=== PATIENT | female | born 1955 | race Two or more races ===

== ENCOUNTER 2018-04-18 11:41 | Emergency (ER) | payer MEDICARE, MEDICAID ==
[~2018-04-18] VITALS: Ht 170.2 cm; Wt 65.9 kg
[~2018-04-18 11:41] MED LIST: AMIT-189 PO; AMYL1CAP54 PO; CLON-529 PO; DIVA-74 PO; DOCU-274 PO; FOLI-43 PO; LISI10TA4 PO; LORA0.5T PO; OMEP-84 PO; SERT-128 PO; TRAM50TA2 PO
[2018-04-18 11:46] VITALS: BP 147/70
[2018-04-18] MEDS ORDERED: HYDROcodone/acetaminophen 10/325mg tab PO ONE (12:35)
[2018-04-18] MEDS ORDERED: HYDR-4353 PO (14:24)
== END 2018-04-18 15:03 | disposition home or self-care (01) ==
LOC: ER 11:43
DX: S32.018A Other fracture of first lumbar vertebra, initial encounter for closed fracture (principal); S32.028A Other fracture of second lumbar vertebra, initial encounter for closed fracture; S32.038A Other fracture of third lumbar vertebra, initial encounter for closed fracture; S32.048A Other fracture of fourth lumbar vertebra, initial encounter for closed fracture; I10 Essential (primary) hypertension; K21.9 Gastro-esophageal reflux disease without esophagitis; Z90.89 Acquired absence of other organs; Z98.890 Other specified postprocedural states; Z79.899 Other long term (current) drug therapy; Z60.2 Problems related to living alone; V09.9XXA Pedestrian injured in unspecified transport accident, initial encounter; Y93.89 Activity, other specified; Y92.89 Other specified places as the place of occurrence of the external cause; Y99.8 Other external cause status
CPT/HCPCS: 74176; 99284

== ENCOUNTER 2018-04-30 04:01 | Inpatient (IN) | payer MEDICARE, MEDICAID | END 2018-05-05 13:50 | disposition home or self-care (01) | LOC: SUR 3N 05-02 01:09 → ER 04:01 → ED HOLD 06:02 → SUR 3N 14:37 | DX: N39.0 Urinary tract infection, site not specified (principal); L03.115 Cellulitis of right lower limb; R55 Syncope and collapse; E87.6 Hypokalemia; K21.9 Gastro-esophageal reflux disease without esophagitis; F41.9 Anxiety disorder, unspecified; F31.9 Bipolar disorder, unspecified; I95.9 Hypotension, unspecified; D50.9 Iron deficiency anemia, unspecified ==

== ENCOUNTER 2018-05-28 14:07 | Observation (INO) | payer MEDICARE, MEDICAID ==
[~2018-05-28] VITALS: Ht 170.2 cm; Wt 68.0 kg
[~2018-05-28 14:07] MED LIST changes: -AMIT-189 PO; -AMYL1CAP54 PO; +ARIP5TAB4 PO; +BACL10TA PO; -DOCU-274 PO; -FOLI-43 PO; -LISI10TA4 PO; -LORA0.5T PO; -OMEP-84 PO; +PANT-47 PO; +SULF1TAB49 PO
[2018-05-28] MEDS ORDERED: aspirin 81mg tab.chew PO ONE (14:30)
[2018-05-28 14:56] LABS: BASOPHILS % (AUTO) 0.7 % (0-1); EOSINOPHILS # (AUTO) 0.3 X10'3 (0-0.9); EOSINOPHILS % (AUTO) 4.8 % (0-6); HEMOGLOBIN 8.8 g/dl (12.0-16.0); LYMPHOCYTES # (AUTO) 2.5 X10'3 (1.1-4.8); LYMPHOCYTES % (AUTO) 46.2 % (21-51); MEAN CORPUSCULAR HGB CONC 32.5 g/dL (33.0-36.5); MEAN PLATELET VOLUME 8.2 FL (7.4-10.4); MONOCYTES # (AUTO) 0.4 X10'3 (0-0.9); MONOCYTES % (AUTO) 6.9 % (2-12); NEUTROPHILS # (AUTO) 2.2 X10'3 (1.8-7.7); NEUTROPHILS % (AUTO) 41.4 % (42-75); PLATELET COUNT 158 X10'3 (140-440); RED BLOOD COUNT 3.51 X10'6 (4.20-5.60); RED CELL DISTRIBUTION WIDTH 26.3 % (11.5-14.5); WHITE BLOOD COUNT 5.4 X10'3 (4.5-11.0)
[2018-05-28 15:07] LABS: ALANINE AMINOTRANSFERASE 18 U/L (12-78); ALBUMIN 2.9 G/DL (3.4-5.0); ALBUMIN/GLOBULIN RATIO 0.8 (1.1-1.5); ALKALINE PHOSPHATASE 54 IU/L (46-116); ANION GAP 12 (8-16); ASPARTATE AMINO TRANSFERASE 21 U/L (10-37); BILIRUBIN,TOTAL 0.1 MG/DL (0.1-1.0); BLOOD UREA NITROGEN 20 MG/DL (7-18); BUN/CREATININE RATIO 20.2 (6.6-38.0); CALCIUM 8.6 MG/DL (8.5-10.1); CHLORIDE 103 MMOL/L (99-107); CREATININE 0.99 MG/DL (0.40-0.90); D-DIMER 0.59 MG/L FEU (0-0.50); GLUCOSE 93 MG/DL (70-104); PARTIAL THROMBOPLASTIN TIME 27 SECONDS (22-32); POTASSIUM 3.6 MMOL/L (3.5-5.1); SODIUM 139 MMOL/L (135-145); TOTAL CARBON DIOXIDE 24.4 MMOL/L (24-32); TOTAL PROTEIN 6.6 G/DL (6.4-8.2); eGFR 56 ML/MIN
[2018-05-28 15:15] LABS: ANISOCYTOSIS 3+; HYPOCHROMASIA 1+; MICROCYTOSIS 1+; PLATELET ESTIMATE NORMAL; POLYCHROMASIA 1+
[2018-05-28 15:16] LABS: ETHANOL 0.298 GM/DL (0.0-0.010); MAGNESIUM 1.5 MG/DL (1.5-2.4)
[2018-05-28] MEDS ORDERED: normal saline 1000ML IV soln IVB ONE ×3 (15:25→18:10)
[2018-05-28] MEDS ORDERED: iohexol 350MG/ML 100ml bottle IV ONE (16:34)
[2018-05-28] MEDS ORDERED: ondansetron/PF 4mg/2ml inj IV PRN (20:40)
[2018-05-28] MEDS ORDERED: acetaminophen 325mg tablet PO PRN ×2 (20:40)
[2018-05-28] MEDS ORDERED: mag hydrox/Alum hydrox/simeth 30ml oral suspension PO PRN (20:40)
[2018-05-28] MEDS ORDERED: magnesium hydroxide 30ml (MOM) UD suspension PO PRN (20:40)
[2018-05-28] MEDS ORDERED: traMADol 50MG tablet PO PRN (20:45)
[2018-05-28] MEDS: normal saline 1000ml 1,000 ML IV SCH (21:02)
[2018-05-28 23:10] LABS: CLARITY,URINE CLEAR (Clear); COLOR,URINE YELLOW (Yellow); GLUCOSE, URINE NEGATIVE (Neg); KETONES,URINE NEGATIVE (Neg); LEUKOCYTE ESTERASE ,URINE TRACE (Neg); NITRITES, URINE NEGATIVE (Neg); OCCULT BLOOD,URINE TRACE-INTACT (Neg); PROTEIN,URINE NEGATIVE (Neg); UROBILINOGEN,URINE 0.2 E.U/dL (0.2-1.0)
[2018-05-28 23:11] LABS: UA COLLECTION TYPE CLN CATCH MIDSTREAM
[2018-05-28 23:36] VITALS: BP 105/63
[2018-05-29 00:11] LABS: BACTERIA,URINE 2+ /HPF (Neg); MUCUS STRANDS NONE SEEN /LPF (Neg); RBC,URINE 0-2 /HPF (0-2); SQUAMOUS EPITHELIAL CELL,UR FEW /LPF (FEW); WBC,URINE 0-4 /HPF (0-4)
[2018-05-29] MEDS: normal saline 1000ml 1,000 ML IV SCH (01:32)
[2018-05-29 05:00] VITALS: BP 136/78
[2018-05-29 06:34] LABS: BASOPHILS # (AUTO) 0.1 X10'3 (0-0.2); EOSINOPHILS # (AUTO) 0.4 X10'3 (0-0.9); HEMATOCRIT 26.1 % (35.0-45.0); HEMOGLOBIN 8.5 g/dl (12.0-16.0); LYMPHOCYTES # (AUTO) 1.5 X10'3 (1.1-4.8); LYMPHOCYTES % (AUTO) 30.6 % (21-51); MEAN CORPUSCULAR HEMOGLOBIN 25.2 PG (27.0-31.0); MEAN CORPUSCULAR HGB CONC 32.7 g/dL (33.0-36.5); MEAN CORPUSCULAR VOLUME 77.2 FL (78-98); MEAN PLATELET VOLUME 8.5 FL (7.4-10.4); MONOCYTES # (AUTO) 0.5 X10'3 (0-0.9); MONOCYTES % (AUTO) 9.9 % (2-12); NEUTROPHILS # (AUTO) 2.5 X10'3 (1.8-7.7); NEUTROPHILS % (AUTO) 50.5 % (42-75); PLATELET COUNT 149 X10'3 (140-440); RED BLOOD COUNT 3.38 X10'6 (4.20-5.60); RED CELL DISTRIBUTION WIDTH 26.5 % (11.5-14.5)
[2018-05-29 06:55] LABS: ALBUMIN 2.4 G/DL (3.4-5.0); ANION GAP 10 (8-16); BLOOD UREA NITROGEN 19 MG/DL (7-18); BUN/CREATININE RATIO 26.4 (6.6-38.0); CHLORIDE 111 MMOL/L (99-107); CREATININE 0.72 MG/DL (0.40-0.90); GLUCOSE 100 MG/DL (70-104); POTASSIUM 3.5 MMOL/L (3.5-5.1); SODIUM 143 MMOL/L (135-145); eGFR 82 ML/MIN
[2018-05-29] MEDS ORDERED: aripiprazole 5mg tablet PO SCH (08:00)
[2018-05-29] MEDS ORDERED: sertraline 50mg tablet PO SCH (08:00)
[2018-05-29] MEDS ORDERED: divalproex sodium 250mg tablet PO SCH (08:00)
[2018-05-29] MEDS ORDERED: pantoprazole 40mg Tablet.DR PO SCH (08:00)
[2018-05-29] MEDS ORDERED: SUCR1TAB34 PO (10:47)
== END 2018-05-29 16:55 | disposition home or self-care (01) ==
LOC: ER 14:08 → ORTHO 4S 22:25 → CMPBEDREQ 05-29 01:39
PROVIDERS: ADMIT Hospitalist; ATTEND Family Medicine
DX: R07.89 Other chest pain (principal); E86.0 Dehydration; I95.9 Hypotension, unspecified; I10 Essential (primary) hypertension; K21.9 Gastro-esophageal reflux disease without esophagitis; G89.29 Other chronic pain; D64.9 Anemia, unspecified; F31.9 Bipolar disorder, unspecified; F41.9 Anxiety disorder, unspecified; F10.20 Alcohol dependence, uncomplicated
CPT/HCPCS: 36415; 71045; 71275; 80048; 80053; 80320; 81001; 83735; 83880; 84484; 85025; 85379; 85610; 85730; 87070; 87088; 93005; 96360; 96361; 97162; 97530; 99284; G0378; J7030; Q9967

== ENCOUNTER 2018-07-15 15:51 | Emergency (ER) | payer MEDICARE, MEDICAID ==
[~2018-07-15] VITALS: Ht 170.2 cm; Wt 75.0 kg
[~2018-07-15 15:51] MED LIST changes: +SUCR1TAB34 PO; -SULF1TAB49 PO
[2018-07-15 15:54] VITALS: BP 115/77
[2018-07-15] MEDS ORDERED: ketorolac tromethamine 15mg/ml inj. IM ONE (16:55)
== END 2018-07-15 17:49 | disposition home or self-care (01) ==
LOC: ER 15:51
DX: M79.672 Pain in left foot (principal); I10 Essential (primary) hypertension; K21.9 Gastro-esophageal reflux disease without esophagitis; G89.29 Other chronic pain; Z98.890 Other specified postprocedural states; Z79.899 Other long term (current) drug therapy
CPT/HCPCS: 73630; 96372; 99284; J1885

== ENCOUNTER 2018-09-23 15:40 | Emergency (ER) | payer MEDICARE, MEDICAID ==
[~2018-09-23] VITALS: Ht 170.2 cm; Wt 65.9 kg
[2018-09-23 15:51] VITALS: BP 109/85
== END 2018-09-23 18:46 | disposition home or self-care (01) ==
LOC: ER 15:41
DX: M54.5 Low back pain (principal); M25.532 Pain in left wrist; M25.511 Pain in right shoulder; M25.512 Pain in left shoulder; R51 Headache; I10 Essential (primary) hypertension; K21.9 Gastro-esophageal reflux disease without esophagitis; G89.29 Other chronic pain; F41.9 Anxiety disorder, unspecified; F31.9 Bipolar disorder, unspecified; Z98.890 Other specified postprocedural states; Z79.899 Other long term (current) drug therapy; W10.8XXA Fall (on) (from) other stairs and steps, initial encounter; Y93.89 Activity, other specified; Y92.89 Other specified places as the place of occurrence of the external cause; Y99.8 Other external cause status
CPT/HCPCS: 70450; 72125; 73100; 99284

== ENCOUNTER 2018-12-20 01:16 | Emergency (ER) | payer MEDICARE, MEDICAID ==
[~2018-12-20] VITALS: Ht 170.2 cm; Wt 66.0 kg
[2018-12-20] MEDS ORDERED: ketorolac trometh inj. 60 MG/2 ML VIAL IM ONE (01:45)
[2018-12-20 02:48] VITALS: BP 125/78
== END 2018-12-20 02:49 | disposition home or self-care (01) ==
LOC: ER 01:17
DX: M25.562 Pain in left knee (principal); G89.29 Other chronic pain; I10 Essential (primary) hypertension; K21.9 Gastro-esophageal reflux disease without esophagitis; F41.9 Anxiety disorder, unspecified; F31.9 Bipolar disorder, unspecified; F10.99 Alcohol use, unspecified with unspecified alcohol-induced disorder; Z60.2 Problems related to living alone; Z79.899 Other long term (current) drug therapy; Z86.2 Personal history of diseases of the blood and blood-forming organs and certain disorders involving the immune mechanism; Z90.89 Acquired absence of other organs; Z98.890 Other specified postprocedural states; Y90.9 Presence of alcohol in blood, level not specified
CPT/HCPCS: 73564; 96372; 99284; J1885

== ENCOUNTER 2019-03-15 16:44 | Emergency (ER) | payer MEDICARE, MEDICAID ==
[~2019-03-15] VITALS: Ht 165.1 cm; Wt 64.5 kg
[~2019-03-15 16:44] MED LIST changes: +ARIP5TAB14 PO; -ARIP5TAB4 PO
[2019-03-15] MEDS ORDERED: traMADol 50MG tablet PO ONE (18:00)
[2019-03-15] MEDS ORDERED: TETanus/Pertussis (Acell)/Diphther VAC/PF (Tdap-Adult) 0.5ml syringe IMVAC ONE (18:00)
--- NOTE | 2019-03-15 18:20 | NUR ---
Pt. to CT
[2019-03-15 19:09] VITALS: BP 118/74
--- NOTE | 2019-03-15 19:12 | NUR ---
CONNIE CALLED , CASE # [id number]
== END 2019-03-15 23:02 | disposition home or self-care (01) ==
LOC: ER 16:45
DX: S13.4XXA Sprain of ligaments of cervical spine, initial encounter (principal); S20.312A Abrasion of left front wall of thorax, initial encounter; S50.812A Abrasion of left forearm, initial encounter; S09.90XA Unspecified injury of head, initial encounter; I10 Essential (primary) hypertension; K21.9 Gastro-esophageal reflux disease without esophagitis; G89.29 Other chronic pain; Z98.890 Other specified postprocedural states; Z90.89 Acquired absence of other organs; Z79.899 Other long term (current) drug therapy; Y04.0XXA Assault by unarmed brawl or fight, initial encounter; Y93.89 Activity, other specified; Y92.89 Other specified places as the place of occurrence of the external cause; Y99.9 Unspecified external cause status
CPT/HCPCS: 70450; 72125; 72128; 90471; 90715; 99284

== ENCOUNTER 2019-03-23 13:49 | Emergency (ER) | payer OTHER, MEDICAID ==
[~2019-03-23] VITALS: Ht 170.2 cm; Wt 62.7 kg
[2019-03-23 13:58] VITALS: BP 160/102
[2019-03-23] MEDS ORDERED: TRAM50TA2 PO (14:23)
[2019-03-23] MEDS ORDERED: traMADol 50MG tablet PO ONE (14:25)
== END 2019-03-23 14:46 | disposition home or self-care (01) ==
LOC: ER 13:50
DX: S20.02XA Contusion of left breast, initial encounter (principal); M79.18 Myalgia, other site; I10 Essential (primary) hypertension; K21.9 Gastro-esophageal reflux disease without esophagitis; G89.29 Other chronic pain; F31.9 Bipolar disorder, unspecified; F41.9 Anxiety disorder, unspecified; Z98.890 Other specified postprocedural states; Z60.2 Problems related to living alone; Z72.89 Other problems related to lifestyle; Z79.899 Other long term (current) drug therapy; Z99.3 Dependence on wheelchair; X58.XXXA Exposure to other specified factors, initial encounter; Y93.89 Activity, other specified; Y92.89 Other specified places as the place of occurrence of the external cause; Y99.8 Other external cause status
CPT/HCPCS: 99284

== ENCOUNTER 2019-07-17 12:58 | Emergency (ER) | payer MEDICAID, OTHER ==
[~2019-07-17] VITALS: Ht 170.2 cm; Wt 56.8 kg
[2019-07-17] MEDS ORDERED: nitroGLYCERIN 0.4mg SUBLingual tab SL PRN (13:30)
[2019-07-17] MEDS ORDERED: aspirin 81mg tab.chew PO ONE (13:30)
[2019-07-17 13:43] LABS: BASOPHILS # (AUTO) 0.1 X10'3 (0-0.2); BASOPHILS % (AUTO) 1.5 % (0-1); EOSINOPHILS # (AUTO) 0.4 X10'3 (0-0.9); EOSINOPHILS % (AUTO) 5.1 % (0-6); HEMATOCRIT 31.8 % (35.0-45.0); HEMOGLOBIN 10.3 g/dl (12.0-16.0); LYMPHOCYTES # (AUTO) 3.1 X10'3 (1.1-4.8); LYMPHOCYTES % (AUTO) 41.5 % (21-51); MEAN CORPUSCULAR HEMOGLOBIN 25.4 PG (27.0-31.0); MEAN CORPUSCULAR HGB CONC 32.4 g/dL (33.0-36.5); MEAN CORPUSCULAR VOLUME 78.3 FL (78-98); MEAN PLATELET VOLUME 7.3 FL (7.4-10.4); MONOCYTES # (AUTO) 0.5 X10'3 (0-0.9); MONOCYTES % (AUTO) 6.8 % (2-12); NEUTROPHILS # (AUTO) 3.4 X10'3 (1.8-7.7); NEUTROPHILS % (AUTO) 45.1 % (42-75); PLATELET COUNT 250 X10'3 (140-440); RED BLOOD COUNT 4.06 X10'6 (4.20-5.60); RED CELL DISTRIBUTION WIDTH 17.8 % (11.5-14.5); WHITE BLOOD COUNT 7.4 X10'3 (4.5-11.0)
[2019-07-17 13:55] LABS: D-DIMER 0.76 MG/L FEU (0-0.50); PARTIAL THROMBOPLASTIN TIME 27 SECONDS (22-32)
[2019-07-17 13:59] LABS: ALANINE AMINOTRANSFERASE 22 U/L (12-78); ALBUMIN 3.2 G/DL (3.4-5.0); ALBUMIN/GLOBULIN RATIO 0.7 (1.1-1.5); ALKALINE PHOSPHATASE 68 IU/L (46-116); ANION GAP 16 (8-16); ASPARTATE AMINO TRANSFERASE 36 U/L (10-37); BILIRUBIN,TOTAL 0.2 MG/DL (0.1-1.0); BLOOD UREA NITROGEN 22 MG/DL (7-18); BUN/CREATININE RATIO 28.6 (6.6-38.0); CALCIUM 8.4 MG/DL (8.5-10.1); CHLORIDE 107 MMOL/L (99-107); CREATININE 0.77 MG/DL (0.40-0.90); GLUCOSE 81 MG/DL (70-104); POTASSIUM 3.1 MMOL/L (3.5-5.1); SODIUM 144 MMOL/L (135-145); TOTAL CARBON DIOXIDE 21.3 MMOL/L (24-32); TOTAL PROTEIN 7.7 G/DL (6.4-8.2); eGFR 75 ML/MIN
[2019-07-17] MEDS ORDERED: ketorolac trometh inj. 60 MG/2 ML VIAL IM ONE (14:20)
[2019-07-17] MEDS ORDERED: acetaminophen 325mg tablet PO ONE (14:20)
[2019-07-17] MEDS ORDERED: ketorolac tromethamine 15mg/ml inj. IV ONE (14:25)
[2019-07-17] MEDS ORDERED: iohexol 350MG/ML 100ml bottle IV ONE (14:40)
[2019-07-17] MEDS ORDERED: potassium Cl 20 mEq SR tablet PO STA (17:06)
[2019-07-17 17:57] VITALS: BP 106/61
== END 2019-07-17 18:42 | disposition home or self-care (01) ==
LOC: ER 12:59
DX: R07.89 Other chest pain (principal); I10 Essential (primary) hypertension; K21.9 Gastro-esophageal reflux disease without esophagitis; G89.29 Other chronic pain; F41.9 Anxiety disorder, unspecified; F31.9 Bipolar disorder, unspecified; Z90.89 Acquired absence of other organs; Z98.890 Other specified postprocedural states; Z72.89 Other problems related to lifestyle; Z79.899 Other long term (current) drug therapy
CPT/HCPCS: 36415; 71045; 71275; 80053; 83735; 83880; 84484; 85025; 85379; 85610; 85730; 93005; 96374; 99285; J1885; Q9967

== ENCOUNTER 2019-11-02 06:56 | Day surgery (SDC) | payer OTHER, MEDICAID ==
[~2019-11-02] VITALS: Ht 167.6 cm; Wt 70.5 kg
[2019-11-02 07:13] VITALS: BP 117/73
[2019-11-02] MEDS ORDERED: MIDAZolam 5mg/5ml vial ONE (07:20)
[2019-11-02] MEDS ORDERED: fentaNYL/PF 50MCG/1 ML 2ML syringe ONE (07:20)
[2019-11-02] MEDS ORDERED: LIDOcaine Viscous 15ml cup ONE (07:21)
[2019-11-02] MEDS ORDERED: DIVA125T9 PO (07:35)
[2019-11-02] MEDS ORDERED: TRAM50TA2 PO (07:37)
[2019-11-02] MEDS ORDERED: AMYL1CAP54 ×2 (07:38→07:39)
[2019-11-02] MEDS ORDERED: triamcinolone acetonide 40mg/ml inj ONE (08:05)
[2019-11-02 08:27] VITALS: BP 163/82
[2019-11-02 08:37] VITALS: BP 145/85
[2019-11-02 08:47] VITALS: BP 145/67
[2019-11-02 08:57] VITALS: BP 134/83
== END 2019-11-02 09:10 | disposition home or self-care (01) ==
LOC: GI LAB 06:56
PROVIDERS: ATTEND Internal Medicine Gastroenterology
DX: R13.14 Dysphagia, pharyngoesophageal phase (principal); K22.2 Esophageal obstruction
CPT/HCPCS: 43236; 43248; 99153; G0500; J2250; J3010; J3301; J7040; 43243; 99152; A4620

== ENCOUNTER 2020-02-10 11:13 | Emergency (ER) | payer OTHER, MEDICAID ==
[~2020-02-10] VITALS: Ht 170.2 cm; Wt 61.4 kg
[~2020-02-10 11:13] MED LIST changes: +AMYL1CAP54; -BACL10TA PO; -CLON-529 PO; -DIVA-74 PO; +DIVA125T9 PO
[2020-02-10 11:39] VITALS: BP 113/86
== END 2020-02-10 16:08 | disposition home or self-care (01) ==
LOC: ER 14:15
DX: S93.402A Sprain of unspecified ligament of left ankle, initial encounter (principal); I10 Essential (primary) hypertension; K21.9 Gastro-esophageal reflux disease without esophagitis; G89.29 Other chronic pain; Z86.2 Personal history of diseases of the blood and blood-forming organs and certain disorders involving the immune mechanism; Z98.890 Other specified postprocedural states; Z90.89 Acquired absence of other organs; Z60.9 Problem related to social environment, unspecified; Z79.899 Other long term (current) drug therapy; W01.0XXA Fall on same level from slipping, tripping and stumbling without subsequent striking against object, initial encounter; Y93.89 Activity, other specified; Y92.89 Other specified places as the place of occurrence of the external cause; Y99.8 Other external cause status
CPT/HCPCS: 29515; 73610; 99283

== ENCOUNTER 2020-03-05 06:58 | Day surgery (SDC) | payer BC, MEDICAID ==
[2020-03-05] VITALS (8 sets, daily range): BP systolic 118–134; BP diastolic 67–74
[~2020-03-05] VITALS: Ht 170.2 cm; Wt 59.1 kg
[2020-03-05] MEDS ORDERED: SUCR1TAB PO (07:42)
[2020-03-05] MEDS ORDERED: MIDAZolam 5mg/5ml vial ONE (07:43)
[2020-03-05] MEDS ORDERED: PRAM0.253 PO (07:43)
[2020-03-05] MEDS ORDERED: fentaNYL/PF 50MCG/1 ML 2ML syringe ONE ×2 (07:43→09:41)
[2020-03-05] MEDS ORDERED: AMPH20TA3 PO (07:43)
[2020-03-05] MEDS ORDERED: LIDOcaine Viscous 15ml cup ONE (07:44)
[2020-03-05] MEDS ORDERED: triamcinolone acetonide 40mg/ml inj ONE (09:09)
== END 2020-03-05 11:43 | disposition home or self-care (01) ==
LOC: GI LAB 06:58
PROVIDERS: ATTEND Internal Medicine Gastroenterology
DX: Z12.11 Encounter for screening for malignant neoplasm of colon (principal); R13.10 Dysphagia, unspecified; K22.2 Esophageal obstruction; D12.4 Benign neoplasm of descending colon; K63.5 Polyp of colon; Z86.010 Personal history of colon polyps; I10 Essential (primary) hypertension; K21.9 Gastro-esophageal reflux disease without esophagitis; Z79.899 Other long term (current) drug therapy
CPT/HCPCS: 43236; 43248; 45380; 45385; 99153; C1773; G0500; J2250; J3010; J3301; J7040; 43243; 88305; 99152; A4620

== ENCOUNTER 2020-04-25 20:10 | Emergency (ER) | payer BC, MEDICAID ==
[~2020-04-25] VITALS: Ht 170.2 cm; Wt 66.1 kg
[~2020-04-25 20:10] MED LIST changes: +AMPH20TA3 PO; -ARIP5TAB14 PO; +PRAM0.253 PO; -SERT-128 PO; +SUCR1TAB PO; -SUCR1TAB34 PO
[2020-04-25] MEDS ORDERED: ibuprofen tablet 400 MG TABLET PO ONE (22:45)
[2020-04-25 23:11] VITALS: BP 125/75
== END 2020-04-25 23:12 | disposition home or self-care (01) ==
LOC: ER 20:11
DX: S20.211A Contusion of right front wall of thorax, initial encounter (principal); I10 Essential (primary) hypertension; K21.9 Gastro-esophageal reflux disease without esophagitis; G89.29 Other chronic pain; F41.9 Anxiety disorder, unspecified; F31.9 Bipolar disorder, unspecified; Z72.89 Other problems related to lifestyle; Z60.2 Problems related to living alone; Z86.2 Personal history of diseases of the blood and blood-forming organs and certain disorders involving the immune mechanism; Z79.899 Other long term (current) drug therapy; W01.0XXA Fall on same level from slipping, tripping and stumbling without subsequent striking against object, initial encounter; Y93.89 Activity, other specified; Y92.89 Other specified places as the place of occurrence of the external cause; Y99.8 Other external cause status
CPT/HCPCS: 71100; 99284

== ENCOUNTER → 2020-05-17 | Emergency (ER) | payer BC, MEDICAID ==
[~2020-05-17] VITALS: Ht 170.2 cm; Wt 61.4 kg
[~2020-05-17] MED LIST changes: +acetaminophen 325mg tablet PO ONE
[2020-05-17 00:16] VITALS: BP 159/98
== END | disposition home or self-care (01) ==
LOC: ER 00:05
DX: S43.402A Unspecified sprain of left shoulder joint, initial encounter (principal); I10 Essential (primary) hypertension; K21.9 Gastro-esophageal reflux disease without esophagitis; G89.29 Other chronic pain; Z86.2 Personal history of diseases of the blood and blood-forming organs and certain disorders involving the immune mechanism; Z98.890 Other specified postprocedural states; Z72.89 Other problems related to lifestyle; Z79.899 Other long term (current) drug therapy; Z89.511 Acquired absence of right leg below knee
CPT/HCPCS: 29105; 73030; 99283

== ENCOUNTER 2020-09-01 16:47 | Emergency (ER) | payer MEDICARE, MEDICAID ==
[~2020-09-01] VITALS: Ht 170.2 cm; Wt 62.3 kg
[~2020-09-01 16:47] MED LIST changes: -acetaminophen 325mg tablet PO ONE
[2020-09-01 17:07] LABS: BASOPHILS # (AUTO) 0.1 X10'3 (0-0.2); BASOPHILS % (AUTO) 1.7 % (0-1); EOSINOPHILS # (AUTO) 0.5 X10'3 (0-0.9); EOSINOPHILS % (AUTO) 7.3 % (0-6); HEMATOCRIT 33.4 % (35.0-45.0); LYMPHOCYTES # (AUTO) 3.7 X10'3 (1.1-4.8); LYMPHOCYTES % (AUTO) 58.4 % (21-51); MEAN CORPUSCULAR HEMOGLOBIN 27.2 PG (27.0-31.0); MEAN CORPUSCULAR VOLUME 82.4 FL (78-98); MEAN PLATELET VOLUME 7.7 FL (7.4-10.4); MONOCYTES # (AUTO) 0.4 X10'3 (0-0.9); MONOCYTES % (AUTO) 6.9 % (2-12); NEUTROPHILS # (AUTO) 1.6 X10'3 (1.8-7.7); NEUTROPHILS % (AUTO) 25.7 % (42-75); PLATELET COUNT 265 X10'3 (140-440); RED BLOOD COUNT 4.05 X10'6 (4.20-5.60); RED CELL DISTRIBUTION WIDTH 16.8 % (11.5-14.5); WHITE BLOOD COUNT 6.4 X10'3 (4.5-11.0)
[2020-09-01 17:21] LABS: ALANINE AMINOTRANSFERASE 21 U/L (12-78); ALBUMIN/GLOBULIN RATIO 0.7 (1.1-1.5); ALKALINE PHOSPHATASE 57 IU/L (46-116); ANION GAP 9 (8-16); ASPARTATE AMINO TRANSFERASE 18 U/L (10-37); BILIRUBIN,TOTAL 0.2 MG/DL (0.1-1.0); BLOOD UREA NITROGEN 9 MG/DL (7-18); BUN/CREATININE RATIO 12.5 (6.6-38.0); CHLORIDE 106 MMOL/L (99-107); CREATININE 0.72 MG/DL (0.40-0.90); GLUCOSE 88 MG/DL (70-104); SODIUM 143 MMOL/L (135-145); TOTAL CARBON DIOXIDE 28.2 MMOL/L (24-32); TOTAL PROTEIN 7.4 G/DL (6.4-8.2); eGFR 81 ML/MIN
[2020-09-01] MEDS ORDERED: morphine 2 MG/ML inj. syringe IV ONE ×2 (17:30→19:10)
[2020-09-01] MEDS ORDERED: potassium Cl 20 mEq SR tablet PO PRN (17:30)
[2020-09-01 17:39] LABS: MAGNESIUM 1.6 MG/DL (1.5-2.4)
[2020-09-01] MEDS: potassium Cl 10 mEq/100mL bag IV SCH ×2 (18:04→19:02)
[2020-09-01 19:19] VITALS: BP 147/80
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
[2020-09-01] MEDS ORDERED: HYDR-3686 PO (20:53)
[2020-09-01] MEDS ORDERED: BETA15CR4 TOP (20:53)
== END 2020-09-01 21:01 | disposition home or self-care (01) ==
LOC: ER 16:47
DX: R07.89 Other chest pain (principal); R11.0 Nausea; R06.02 Shortness of breath; R00.0 Tachycardia, unspecified; L23.7 Allergic contact dermatitis due to plants, except food; I10 Essential (primary) hypertension; K21.9 Gastro-esophageal reflux disease without esophagitis; G89.29 Other chronic pain; Z86.2 Personal history of diseases of the blood and blood-forming organs and certain disorders involving the immune mechanism; Z86.19 Personal history of other infectious and parasitic diseases; Z79.899 Other long term (current) drug therapy; Z72.89 Other problems related to lifestyle
CPT/HCPCS: 36415; 71045; 80053; 83735; 83880; 84484; 85025; 93005; 96361; 96374; 96376; 99285; J2270; J3480

== ENCOUNTER 2020-12-19 18:16 | Emergency (ER) | payer BC, MEDICAID ==
[~2020-12-19] VITALS: Ht 170.2 cm; Wt 65.9 kg
[~2020-12-19 18:16] MED LIST changes: +BETA15CR4 TOP
[2020-12-19 18:35] VITALS: BP 132/74
== END 2020-12-19 22:05 | disposition left against medical advice (07) ==
LOC: ER 18:17
DX: M25.562 Pain in left knee (principal); Z53.21 Procedure and treatment not carried out due to patient leaving prior to being seen by health care provider
CPT/HCPCS: 73564

== ENCOUNTER 2021-02-14 08:58 | Emergency (ER) | payer BC, MEDICAID ==
[~2021-02-14] VITALS: Ht 170.2 cm; Wt 68.8 kg
[2021-02-14] MEDS ORDERED: normal saline 1000ML IV soln IVB ONE (11:20)
[2021-02-14 11:53] LABS: BASOPHILS % (AUTO) 0.5 % (0-1); EOSINOPHILS # (AUTO) 0.1 X10'3 (0-0.9); EOSINOPHILS % (AUTO) 1.1 % (0-6); HEMOGLOBIN 10.7 g/dl (12.0-16.0); LYMPHOCYTES # (AUTO) 0.8 X10'3 (1.1-4.8); LYMPHOCYTES % (AUTO) 11.2 % (21-51); MEAN CORPUSCULAR HEMOGLOBIN 26.2 PG (27.0-31.0); MEAN CORPUSCULAR HGB CONC 32.5 g/dL (33.0-36.5); MEAN CORPUSCULAR VOLUME 80.5 FL (78-98); MEAN PLATELET VOLUME 8.2 FL (7.4-10.4); MONOCYTES # (AUTO) 0.6 X10'3 (0-0.9); MONOCYTES % (AUTO) 8.1 % (2-12); NEUTROPHILS # (AUTO) 5.4 X10'3 (1.8-7.7); NEUTROPHILS % (AUTO) 79.1 % (42-75); PLATELET COUNT 239 X10'3 (140-440); WHITE BLOOD COUNT 6.8 X10'3 (4.5-11.0)
[2021-02-14 12:13] LABS: ALANINE AMINOTRANSFERASE 16 U/L (12-78); ALBUMIN 3.1 G/DL (3.4-5.0); ALBUMIN/GLOBULIN RATIO 0.7 (1.1-1.5); ALKALINE PHOSPHATASE 72 IU/L (46-116); ANION GAP 12 (8-16); ASPARTATE AMINO TRANSFERASE 19 U/L (10-37); BILIRUBIN,TOTAL 0.2 MG/DL (0.1-1.0); BLOOD UREA NITROGEN 13 MG/DL (7-18); BUN/CREATININE RATIO 19.7 (6.6-38.0); CALCIUM 8.2 MG/DL (8.5-10.1); CHLORIDE 101 MMOL/L (99-107); CREATININE 0.66 MG/DL (0.40-0.90); ETHANOL < 0.010 GM/DL (0.0-0.010); GLUCOSE 99 MG/DL (70-104); POTASSIUM 3.7 MMOL/L (3.5-5.1); SODIUM 139 MMOL/L (135-145); TOTAL CARBON DIOXIDE 26.4 MMOL/L (24-32); TOTAL PROTEIN 7.7 G/DL (6.4-8.2); VALPROATE 59 UG/ML (50-100); eGFR 89 ML/MIN
[2021-02-14 12:14] LABS: ACETAMINOPHEN < 2.0 UG/ML (10-30)
[2021-02-14 12:32] LABS: URINE AMPHETAMINE SCREEN NEGATIVE (Neg); URINE BARBITUATE SCREEN NEGATIVE (Neg); URINE BENZODIAZEPINES SCREEN NEGATIVE (Neg); URINE CANNABINOID SCREEN NEGATIVE (Neg); URINE COCAINE SCREEN NEGATIVE (Neg); URINE METHADONE SCREEN NEGATIVE (Neg); URINE OPIATE SCREEN NEGATIVE (Neg); URINE PHENCYCLIDINE SCREEN NEGATIVE (Neg)
[2021-02-14 16:06] VITALS: BP 145/81
[2021-02-14] MEDS ORDERED: morphine 2 MG/ML inj. syringe IV ONE (16:50)
[2021-02-14 17:57] LABS: CLARITY,URINE CLOUDY (Clear); COLOR,URINE YELLOW (Yellow); GLUCOSE, URINE NEGATIVE (Neg); KETONES,URINE NEGATIVE (Neg); LEUKOCYTE ESTERASE ,URINE TRACE (Neg); NITRITES, URINE POSITIVE (Neg); OCCULT BLOOD,URINE NEGATIVE (Neg); PH,URINE 7.5 (4.8-8.0); PROTEIN,URINE NEGATIVE (Neg); UROBILINOGEN,URINE 0.2 E.U/dL (0.2-1.0)
[2021-02-14 17:58] LABS: UA COLLECTION TYPE VOIDED
[2021-02-14 18:02] LABS: BACTERIA,URINE 4+ /HPF (Neg); RBC,URINE 0-2 /HPF (0-2); SQUAMOUS EPITHELIAL CELL,UR FEW /LPF (FEW); WBC,URINE 0-4 /HPF (0-4)
[2021-02-14] MEDS ORDERED: CEPH-585 PO (18:20)
== END 2021-02-14 20:09 | disposition home or self-care (01) ==
LOC: ER 08:59
DX: T50.901A Poisoning by unspecified drugs, medicaments and biological substances, accidental (unintentional), initial encounter (principal); N39.0 Urinary tract infection, site not specified; M62.838 Other muscle spasm; I10 Essential (primary) hypertension; K21.9 Gastro-esophageal reflux disease without esophagitis; G89.29 Other chronic pain; F41.9 Anxiety disorder, unspecified; F31.9 Bipolar disorder, unspecified; Z86.2 Personal history of diseases of the blood and blood-forming organs and certain disorders involving the immune mechanism; Z90.89 Acquired absence of other organs; Z98.890 Other specified postprocedural states; Z72.89 Other problems related to lifestyle; Z60.2 Problems related to living alone; Z91.040 Latex allergy status; Z79.2 Long term (current) use of antibiotics; Z79.899 Other long term (current) drug therapy; Y92.89 Other specified places as the place of occurrence of the external cause
CPT/HCPCS: 36415; 80053; 80164; 80305; 80320; 80329; 81001; 82140; 85025; 87077; 87088; 87186; 93005; 96361; 96374; 99284; J2270; J7030

== ENCOUNTER 2021-03-20 15:04 | Emergency (ER) | payer OTHER, MEDICAID ==
[~2021-03-20] VITALS: Ht 170.2 cm; Wt 62.2 kg
[~2021-03-20 15:04] MED LIST changes: +CEPH-585 PO
[2021-03-20 15:25] VITALS: BP 174/106
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
== END 2021-03-21 07:09 | disposition home or self-care (01) ==
LOC: ER 15:05
DX: T76.21XA Adult sexual abuse, suspected, initial encounter (principal); I10 Essential (primary) hypertension; K21.9 Gastro-esophageal reflux disease without esophagitis; G89.29 Other chronic pain; F41.9 Anxiety disorder, unspecified; F31.9 Bipolar disorder, unspecified; Z86.2 Personal history of diseases of the blood and blood-forming organs and certain disorders involving the immune mechanism; Z90.89 Acquired absence of other organs; Z98.890 Other specified postprocedural states; Z72.89 Other problems related to lifestyle; Z60.2 Problems related to living alone; Z91.040 Latex allergy status; Z79.2 Long term (current) use of antibiotics; Z79.899 Other long term (current) drug therapy; X58.XXXA Exposure to other specified factors, initial encounter; Y93.89 Activity, other specified; Y92.89 Other specified places as the place of occurrence of the external cause; Y99.8 Other external cause status
CPT/HCPCS: 99283

== ENCOUNTER 2021-04-07 17:41 | Emergency (ER) | payer OTHER, MEDICAID ==
[~2021-04-07] VITALS: Ht 170.2 cm; Wt 61.4 kg
[2021-04-07 19:37] LABS: BASOPHILS # (AUTO) 0.1 X10'3 (0-0.2); BASOPHILS % (AUTO) 1.5 % (0-1); EOSINOPHILS # (AUTO) 0.2 X10'3 (0-0.9); HEMOGLOBIN 10.5 g/dl (12.0-16.0); LYMPHOCYTES # (AUTO) 2.4 X10'3 (1.1-4.8); RED CELL DISTRIBUTION WIDTH 20.3 % (11.5-14.5)
[2021-04-07 19:39] LABS: HEMATOCRIT 32.1 % (35.0-45.0); LYMPHOCYTES % (AUTO) 43.4 % (21-51); MEAN CORPUSCULAR HEMOGLOBIN 26.5 PG (27.0-31.0); MEAN CORPUSCULAR HGB CONC 32.9 g/dL (33.0-36.5); MEAN CORPUSCULAR VOLUME 80.7 FL (78-98); MEAN PLATELET VOLUME 7.4 FL (7.4-10.4); MONOCYTES # (AUTO) 0.7 X10'3 (0-0.9); NEUTROPHILS # (AUTO) 2.1 X10'3 (1.8-7.7); NEUTROPHILS % (AUTO) 39.1 % (42-75); PLATELET COUNT 176 X10'3 (140-440); RED BLOOD COUNT 3.97 X10'6 (4.20-5.60); WHITE BLOOD COUNT 5.4 X10'3 (4.5-11.0)
[2021-04-07 20:14] LABS: ALANINE AMINOTRANSFERASE 27 U/L (12-78); ALBUMIN 3.3 G/DL (3.4-5.0); ALBUMIN/GLOBULIN RATIO 0.8 (1.1-1.5); ALKALINE PHOSPHATASE 66 IU/L (46-116); ANION GAP 15 (8-16); ASPARTATE AMINO TRANSFERASE 29 U/L (10-37); BILIRUBIN,TOTAL 0.2 MG/DL (0.1-1.0); BLOOD UREA NITROGEN 13 MG/DL (7-18); BUN/CREATININE RATIO 17.8 (6.6-38.0); CALCIUM 8.7 MG/DL (8.5-10.1); CHLORIDE 103 MMOL/L (99-107); CREATININE 0.73 MG/DL (0.40-0.90); GLUCOSE 93 MG/DL (70-104); SODIUM 145 MMOL/L (135-145); TOTAL CARBON DIOXIDE 27.1 MMOL/L (24-32); TOTAL PROTEIN 7.7 G/DL (6.4-8.2); eGFR 80 ML/MIN
[2021-04-07 20:19] LABS: POTASSIUM 2.4 MMOL/L (3.5-5.1)
[2021-04-07] MEDS ORDERED: iohexol 300mg/ml 100ml inj. ONE (21:43)
[2021-04-07 21:50] LABS: LIPASE 139 U/L (73-393); MAGNESIUM 1.5 MG/DL (1.5-2.4)
[2021-04-07 21:51] LABS: PLATELET ESTIMATE NORMAL; TOTAL CELLS COUNTED 100
[2021-04-07 21:52] LABS: ANISOCYTOSIS 3+
[2021-04-07 21:54] LABS: APTT 27 SECONDS (22-32); D-DIMER 0.53 MG/L FEU (0-0.50)
[2021-04-07 21:58] LABS: CLARITY,URINE SLIGHTLY CLOUDY (Clear)
[2021-04-07] MEDS ORDERED: magnesium 2GM in 50ml NS 50 ML IV ONE (22:00)
[2021-04-07] MEDS ORDERED: potassium Cl 20 mEq SR tablet PO ONE (22:00)
[2021-04-07] MEDS ORDERED: potassium Cl 10 mEq/100mL bag IV ONE (22:00)
--- NOTE | 2021-04-07 22:00 | NUR ---
PT in CT
[2021-04-07 22:03] LABS: COLOR,URINE ORANGE (Yellow)
[2021-04-07 22:05] LABS: UA COLLECTION TYPE NON-SPECIFIED
[2021-04-07 22:17] LABS: BACTERIA,URINE 2+ /HPF (Neg); RBC,URINE 0-2 /HPF (0-2); SQUAMOUS EPITHELIAL CELL,UR FEW /LPF (FEW)
[2021-04-07 22:18] LABS: MUCUS STRANDS NONE SEEN /LPF (Neg); TRANSITIONAL EPI CELLS,URINE FEW /HPF
[2021-04-07 22:34] LABS: HEMOGLOBIN 10.7 g/dl (12.0-16.0); MEAN CORPUSCULAR HEMOGLOBIN 26.2 PG (27.0-31.0); MEAN CORPUSCULAR HGB CONC 32.4 g/dL (33.0-36.5); MEAN CORPUSCULAR VOLUME 80.9 FL (78-98); MEAN PLATELET VOLUME 7.4 FL (7.4-10.4); PLATELET COUNT 172 X10'3 (140-440); RED BLOOD COUNT 4.08 X10'6 (4.20-5.60); RED CELL DISTRIBUTION WIDTH 20.2 % (11.5-14.5); WHITE BLOOD COUNT 4.6 X10'3 (4.5-11.0)
[2021-04-08] MEDS ORDERED: famotidine 20mg tablet PO ONE (00:20)
[2021-04-08] MEDS ORDERED: mag hydrox/Alum hydrox/simeth 30ml oral suspension PO ONE (00:20)
[2021-04-08] MEDS ORDERED: cephalexin 500mg capsule PO ONE (00:30)
[2021-04-08] MEDS ORDERED: iohexol 350 MG/ML 50ML vial IV ONE (00:32)
[2021-04-08] MEDS ORDERED: POTA-207 PO (00:47)
[2021-04-08] MEDS ORDERED: CEPH250T PO (00:47)
[2021-04-08 01:59] LABS: ALANINE AMINOTRANSFERASE 25 U/L (12-78); ALBUMIN 3.1 G/DL (3.4-5.0); ALBUMIN/GLOBULIN RATIO 0.9 (1.1-1.5); ALKALINE PHOSPHATASE 60 IU/L (46-116); ANION GAP 14 (8-16); ASPARTATE AMINO TRANSFERASE 29 U/L (10-37); BILIRUBIN,TOTAL 0.2 MG/DL (0.1-1.0); BLOOD UREA NITROGEN 14 MG/DL (7-18); BUN/CREATININE RATIO 20.9 (6.6-38.0); CHLORIDE 105 MMOL/L (99-107); CREATININE 0.67 MG/DL (0.40-0.90); GLUCOSE 130 MG/DL (70-104); MAGNESIUM 1.9 MG/DL (1.5-2.4); SODIUM 144 MMOL/L (135-145); TOTAL CARBON DIOXIDE 24.9 MMOL/L (24-32); TOTAL PROTEIN 6.6 G/DL (6.4-8.2); eGFR 88 ML/MIN
[2021-04-08 02:02] LABS: POTASSIUM 2.9 MMOL/L (3.5-5.1)
[2021-04-08] MEDS ORDERED: magnesium oxide 400mg tablet PO ONE (02:20)
[2021-04-08] MEDS ORDERED: potassium Cl 20 mEq SR tablet PO ONE (02:20)
[2021-04-08] MEDS ORDERED: thiamine 100mg tablet PO ONE (02:25)
[2021-04-08 02:45] VITALS: BP 153/85
== END 2021-04-08 02:47 | disposition home or self-care (01) ==
LOC: ER 17:42
DX: N39.0 Urinary tract infection, site not specified (principal); E87.6 Hypokalemia; D64.9 Anemia, unspecified; R07.89 Other chest pain; I10 Essential (primary) hypertension; K21.9 Gastro-esophageal reflux disease without esophagitis; G89.29 Other chronic pain; Z87.19 Personal history of other diseases of the digestive system; Z86.19 Personal history of other infectious and parasitic diseases; Z72.89 Other problems related to lifestyle; Z91.040 Latex allergy status; Z79.2 Long term (current) use of antibiotics; Z79.899 Other long term (current) drug therapy; Z89.611 Acquired absence of right leg above knee
CPT/HCPCS: 36415; 71045; 71275; 74177; 80053; 81001; 83690; 83735; 83880; 84484; 85007; 85025; 85027; 85379; 85610; 85730; 93005; 96365; 96366; 96368; 99285; J3475; J3480; Q9967

== ENCOUNTER 2021-09-29 11:29 | Emergency (ER) | payer OTHER, MEDICAID ==
[~2021-09-29] VITALS: Ht 170.2 cm; Wt 61.4 kg
[2021-09-29 11:46] VITALS: BP 148/94
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
[2021-09-29] MEDS ORDERED: LIDOcaine Viscous 15ml cup MM ONE (13:50)
[2021-09-29] MEDS ORDERED: mag hydrox/Alum hydrox/simeth 30ml oral suspension PO ONE (13:50)
[2021-09-29] MEDS ORDERED: sucralfate 1 gm tablet PO ONE (13:50)
[2021-09-29] MEDS ORDERED: PANT-47 PO (14:51)
== END 2021-09-29 15:03 | disposition home or self-care (01) ==
LOC: ER 11:29
DX: K29.20 Alcoholic gastritis without bleeding (principal); J02.9 Acute pharyngitis, unspecified; R12 Heartburn; R05.9 Cough, unspecified; I10 Essential (primary) hypertension; K21.9 Gastro-esophageal reflux disease without esophagitis; G89.29 Other chronic pain; F41.9 Anxiety disorder, unspecified; F31.9 Bipolar disorder, unspecified; Z86.2 Personal history of diseases of the blood and blood-forming organs and certain disorders involving the immune mechanism; Z90.89 Acquired absence of other organs; Z98.890 Other specified postprocedural states; Z72.89 Other problems related to lifestyle; Z60.2 Problems related to living alone; Z91.040 Latex allergy status; Z79.2 Long term (current) use of antibiotics; Z79.899 Other long term (current) drug therapy
CPT/HCPCS: 71045; 93005; 99284

== ENCOUNTER 2022-12-05 12:22 | Emergency (ER) | payer BC, MEDICAID ==
[~2022-12-05] VITALS: Ht 170.2 cm; Wt 61.4 kg
[~2022-12-05 12:22] MED LIST changes: -CEPH-585 PO
[2022-12-05 12:23] VITALS: TEMP 98
[2022-12-05 13:16] LABS: BILIRUBIN,URINE NEGATIVE (Neg); CLARITY,URINE CLOUDY (Clear); COLOR,URINE YELLOW (Yellow); GLUCOSE, URINE NEGATIVE (Neg); KETONES,URINE 15 mg/dl (Neg); LEUKOCYTE ESTERASE ,URINE LARGE (Neg); NITRITES, URINE NEGATIVE (Neg); OCCULT BLOOD,URINE SMALL (Neg); PH,URINE 7.5 (4.8-8.0); PROTEIN,URINE 100 mg/dl (Neg); UA COLLECTION TYPE URINAL; UROBILINOGEN,URINE 0.2 E.U/dL (0.2-1.0)
[2022-12-05 13:30] LABS: BACTERIA,URINE 4+ /HPF (Neg); WBC,URINE 50-100 /HPF (0-4)
[2022-12-05 13:31] LABS: SQUAMOUS EPITHELIAL CELL,UR MODERATE /LPF (FEW)
[2022-12-05 13:56] LABS: BASOPHILS # (AUTO) 0.1 X10'3 (0-0.2); HEMOGLOBIN 9.7 g/dl (12.0-16.0)
[2022-12-05 14:01] LABS: BASOPHILS % (AUTO) 1.5 % (0-1); EOSINOPHILS # (AUTO) 0.4 X10'3 (0-0.9); HEMATOCRIT 31.1 % (35.0-45.0); LYMPHOCYTES # (AUTO) 2.6 X10'3 (1.1-4.8); LYMPHOCYTES % (AUTO) 39.9 % (21-51); MEAN CORPUSCULAR HEMOGLOBIN 21.7 PG (27.0-31.0); MEAN CORPUSCULAR HGB CONC 31.2 g/dL (33.0-36.5); MEAN CORPUSCULAR VOLUME 69.6 FL (78-98); MEAN PLATELET VOLUME 7.4 FL (7.4-10.4); MONOCYTES # (AUTO) 0.6 X10'3 (0-0.9); MONOCYTES % (AUTO) 9.9 % (2-12); NEUTROPHILS # (AUTO) 2.8 X10'3 (1.8-7.7); NEUTROPHILS % (AUTO) 42.7 % (42-75); PLATELET COUNT 347 X10'3 (140-440); RED BLOOD COUNT 4.47 X10'6 (4.20-5.60); RED CELL DISTRIBUTION WIDTH 19.5 % (11.5-14.5); WHITE BLOOD COUNT 6.6 X10'3 (4.5-11.0)
[2022-12-05 14:04] LABS: APTT 27 SECONDS (22-32); D-DIMER 0.49 MG/L FEU (0-0.50); INR 0.9 INR; PROTHROMBIN TIME 10.2 SECONDS (9.0-12.0)
[2022-12-05 14:13] LABS: ALANINE AMINOTRANSFERASE 43 U/L (12-78); ALBUMIN 2.9 G/DL (3.4-5.0); ALBUMIN/GLOBULIN RATIO 0.6 (1.1-1.5); ALKALINE PHOSPHATASE 71 IU/L (46-116); ANION GAP 13 (8-16); ASPARTATE AMINO TRANSFERASE 46 U/L (10-37); BILIRUBIN,TOTAL 0.3 MG/DL (0.1-1.0); BLOOD UREA NITROGEN 9 MG/DL (7-18); BUN/CREATININE RATIO 14.5 (10.0-20.0); CALCIUM 8.4 MG/DL (8.5-10.1); CHLORIDE 104 MMOL/L (99-107); CREATININE 0.62 MG/DL (0.40-0.90); GLUCOSE 89 MG/DL (70-104); PRO BRAIN NATRIURETIC PEPTIDE 65 PG/ML (0-125); SODIUM 140 MMOL/L (135-145); TOTAL CARBON DIOXIDE 22.6 MMOL/L (24-32); TOTAL PROTEIN 7.4 G/DL (6.4-8.2); eGFR > 90 ML/MIN
[2022-12-05 14:16] LABS: POTASSIUM 2.7 MMOL/L (3.5-5.1)
--- NOTE | 2022-12-05 14:17 | NUR ---
PT K 2.7. RN NOTIFIED DR RICE AND KEVYN MEDINA.
[2022-12-05] MEDS ORDERED: potassium chloride 8mEq ER tablet PO ONE (14:20)
[2022-12-05] MEDS ORDERED: potassium 20mEq/D5LR 1000ml bag IV ONE ×2 (14:20→14:30)
[2022-12-05] MEDS ORDERED: potassium 20mEq/D5LR 1,000 ML IV SCH (14:50)
[2022-12-05 14:54] LABS: MAGNESIUM 1.8 MG/DL (1.5-2.4)
[2022-12-05] MEDS ORDERED: iohexol 300mg/ml 100ml inj. ONE (15:33)
[2022-12-05] MEDS ORDERED: CefTRIAXone/D5W-Rocephin 1gm 50 ML IV ONE (15:55)
[2022-12-05 16:30] LABS: ANISOCYTOSIS 2+; MICROCYTOSIS 2+; PLATELET ESTIMATE NORMAL
[2022-12-05] MEDS ORDERED: mag hydrox/Alum hydrox/simeth 30ml oral suspension PO ONE (16:30)
[2022-12-05 16:34] LABS: HYPOCHROMASIA 2+
[2022-12-05] MEDS ORDERED: POTA-192 PO (17:35)
[2022-12-05] MEDS ORDERED: CIPR-259 PO (17:35)
[2022-12-05 21:37] VITALS: BP 122/60; PULSE 90; RESP 18; O2SAT 95
[2022-12-05 21:49] LABS: ALBUMIN 2.5 G/DL (3.4-5.0); ANION GAP 10 (8-16); BLOOD UREA NITROGEN 9 MG/DL (7-18); BUN/CREATININE RATIO 13.8 (10.0-20.0); CALCIUM 8.4 MG/DL (8.5-10.1); CHLORIDE 108 MMOL/L (99-107); CREATININE 0.65 MG/DL (0.40-0.90); GLUCOSE 209 MG/DL (70-104); SODIUM 141 MMOL/L (135-145); eCRCL 80 ML/MIN; eGFR > 90 ML/MIN
[2022-12-05] MEDS ORDERED: POTASSIUM BICARB 20meq eff tab 20 MEQ TABLET.EFF PO ONE (22:10)
== END 2022-12-05 22:31 | disposition home or self-care (01) ==
LOC: ER 12:23
DX: N30.90 Cystitis, unspecified without hematuria (principal); Z20.822 Contact with and (suspected) exposure to COVID-19; E87.6 Hypokalemia; I10 Essential (primary) hypertension; K21.9 Gastro-esophageal reflux disease without esophagitis; F31.9 Bipolar disorder, unspecified; Z91.040 Latex allergy status; Z79.899 Other long term (current) drug therapy; Z79.2 Long term (current) use of antibiotics
CPT/HCPCS: 36415; 71045; 74018; 74177; 80048; 80053; 81001; 83735; 83880; 84484; 85008; 85025; 85379; 85610; 85730; 87088; 87502; 87503; 87811; 93005; 96365; 96375; 99285; J0696; J3480; J3490; Q9967

== ENCOUNTER 2023-09-28 11:10 | Emergency (ER) | payer BC, MEDICAID ==
[~2023-09-28] VITALS: Ht 170.2 cm; Wt 61.4 kg
[2023-09-28 11:12] VITALS: PULSE 91
[2023-09-28 12:17] VITALS: BP 136/84; RESP 16; TEMP 98.7; O2SAT 98
== END 2023-09-28 12:20 | disposition home or self-care (01) ==
LOC: ER 11:11
DX: F10.20 Alcohol dependence, uncomplicated (principal); K21.9 Gastro-esophageal reflux disease without esophagitis; I10 Essential (primary) hypertension; Z91.040 Latex allergy status; Y90.6 Blood alcohol level of 120-199 mg/100 ml
CPT/HCPCS: 99281

== ENCOUNTER 2023-10-03 12:54 | Inpatient (IN) | payer BC, MEDICAID ==
[~2023-10-03] VITALS: Ht 170.2 cm; Wt 61.0 kg
[2023-10-03 13:34] LABS: BASOPHILS # (AUTO) 0.1 X10'3 (0-0.2); BASOPHILS % (AUTO) 0.9 % (0-1); EOSINOPHILS % (AUTO) 0.3 % (0-6); HEMATOCRIT 33.1 % (35.0-45.0); HEMOGLOBIN 10.7 g/dl (12.0-16.0); LYMPHOCYTES # (AUTO) 1.4 X10'3 (1.1-4.8); LYMPHOCYTES % (AUTO) 19.2 % (21-51); MEAN CORPUSCULAR HEMOGLOBIN 23.2 PG (27.0-31.0); MEAN CORPUSCULAR HGB CONC 32.2 g/dL (33.0-36.5); MEAN CORPUSCULAR VOLUME 72.1 FL (78-98); MEAN PLATELET VOLUME 7.6 FL (7.4-10.4); MONOCYTES # (AUTO) 1.1 X10'3 (0-0.9); MONOCYTES % (AUTO) 15.3 % (2-12); NEUTROPHILS # (AUTO) 4.7 X10'3 (1.8-7.7); NEUTROPHILS % (AUTO) 64.3 % (42-75); PLATELET COUNT 271 X10'3 (140-440); RED BLOOD COUNT 4.59 X10'6 (4.20-5.60); RED CELL DISTRIBUTION WIDTH 23.5 % (11.5-14.5); WHITE BLOOD COUNT 7.4 X10'3 (4.5-11.0)
[2023-10-03 13:50] LABS: ALANINE AMINOTRANSFERASE 40 U/L (12-78); ALBUMIN 2.5 G/DL (3.4-5.0); ALBUMIN/GLOBULIN RATIO 0.5 (1.1-1.5); ALKALINE PHOSPHATASE 89 IU/L (46-116); ANION GAP 9 (8-16); ASPARTATE AMINO TRANSFERASE 51 U/L (10-37); BILIRUBIN,TOTAL 0.6 MG/DL (0.1-1.0); BLOOD UREA NITROGEN 10 MG/DL (7-18); BUN/CREATININE RATIO 11.5 (10.0-20.0); CALCIUM 10.6 MG/DL (8.5-10.1); CHLORIDE 84 MMOL/L (99-107); CREATININE 0.87 MG/DL (0.40-0.90); GLUCOSE 151 MG/DL (70-104); LIPASE 52 U/L (16-77); SODIUM 125 MMOL/L (135-145); TOTAL CARBON DIOXIDE 32.2 MMOL/L (24-32); TOTAL PROTEIN 7.7 G/DL (6.4-8.2); eCRCL 59 ML/MIN; eGFR 65 ML/MIN
[2023-10-03 13:53] LABS: POTASSIUM 1.9 MMOL/L (3.5-5.1)
[2023-10-03] MEDS ORDERED: potassium CL 10mEq/100ml bag 100 ML IV PRN (14:40)
[2023-10-03] MEDS ORDERED: potassium Cl 20 mEq SR tablet PO PRN ×3 (14:40→15:00)
[2023-10-03] MEDS ORDERED: magnesium sulf-water 4G/100mL 100 ML IV PRN ×2 (14:40→15:00)
[2023-10-03] MEDS ORDERED: potassium Cl 40MEQ/1/2NS 520ml 520 ML IV PRN (14:40)
[2023-10-03] MEDS ORDERED: magnesium sulf-water 2g/50mL 50 ML IV PRN ×2 (14:40→15:00)
[2023-10-03] MEDS ORDERED: potassium Cl 20mEq/100mL bag 100 ML IV PRN (14:40)
[2023-10-03] MEDS ORDERED: potassium Cl 40MEQ/270ML bag 250 ML IV PRN (14:40)
[2023-10-03] MEDS ORDERED: acetaminophen 325mg tablet PO PRN (15:00)
[2023-10-03] MEDS ORDERED: ondansetron/PF 4mg/2ml inj IV PRN ×2 (15:00→16:50)
[2023-10-03] MEDS ORDERED: dicyclomine 10 MG capsule PO PRN (15:05)
[2023-10-03] MEDS: normal saline 1000ML IV soln IVB ONE (16:19)
[2023-10-03] MEDS: potassium Cl 40MEQ/1/2NS 520ml 520 ML IV PRN (16:20)
[2023-10-03] MEDS: thiamine 100mg tablet PO SCH (16:21)
[2023-10-03] MEDS: loperamide 2mg capsule PO ONE (16:22)
[2023-10-03] MEDS: folic acid 1mg tablet PO SCH (16:22)
[2023-10-03] MEDS: LORazepam 1 MG tablet PO PRN (16:23)
[2023-10-03] MEDS: normal saline 1000ml 1,000 ML IV SCH (16:51)
[2023-10-03] MEDS: LORazepam 2 mg/ml vial IV PRN (19:23)
[2023-10-03] MEDS: heparin, porcine 5000 units/ml vial SQ SCH (20:41)
[2023-10-03] MEDS ORDERED: haloperidol 5mg tablet PO PRN (23:30)
[2023-10-03] MEDS ORDERED: LORazepam 2 mg/ml vial IV PRN (23:30)
[2023-10-04 00:12] LABS: BILIRUBIN,URINE NEGATIVE (Neg); CLARITY,URINE CLOUDY (Clear); COLOR,URINE YELLOW (Yellow); GLUCOSE, URINE NEGATIVE (Neg); KETONES,URINE NEGATIVE (Neg); LEUKOCYTE ESTERASE ,URINE LARGE (Neg); NITRITES, URINE NEGATIVE (Neg); OCCULT BLOOD,URINE SMALL (Neg); PH,URINE 6.5 (4.8-8.0); PROTEIN,URINE TRACE mg/dl (Neg); UROBILINOGEN,URINE 0.2 E.U/dL (0.2-1.0)
[2023-10-04 00:18] LABS: UA COLLECTION TYPE CLN CATCH MIDSTREAM
[2023-10-04 00:23] LABS: WBC,URINE 30-50 /HPF (0-4)
[2023-10-04 00:24] LABS: BACTERIA,URINE 4+ /HPF (Neg); MUCUS STRANDS FEW /LPF (Neg); SQUAMOUS EPITHELIAL CELL,UR MODERATE /LPF (FEW); WBC CLUMPS,URINE FEW /HPF (NEGATIVE)
[2023-10-04 00:25] LABS: HYALINE CASTS 0-3 /LPF (NEGATIVE)
[2023-10-04] MEDS ORDERED: LORazepam 2 mg/ml vial IV PRN (00:30)
[2023-10-04] MEDS ORDERED: haloperidol lactate 5mg/ml inj IM PRN (00:30)
[2023-10-04] MEDS: LORazepam 2 mg/ml vial IV PRN (01:04)
[2023-10-04] MEDS: normal saline 1000ML IV soln IVB ONE (02:36)
[2023-10-04 02:53] LABS: EOSINOPHILS % (AUTO) 0.9 % (0-6); HEMATOCRIT 23.7 % (35.0-45.0); HEMOGLOBIN 7.5 g/dl (12.0-16.0); LYMPHOCYTES # (AUTO) 1.5 X10'3 (1.1-4.8); LYMPHOCYTES % (AUTO) 30.6 % (21-51); MEAN CORPUSCULAR HEMOGLOBIN 22.8 PG (27.0-31.0); MEAN CORPUSCULAR HGB CONC 31.7 g/dL (33.0-36.5); MEAN PLATELET VOLUME 7.6 FL (7.4-10.4); MONOCYTES # (AUTO) 0.9 X10'3 (0-0.9); MONOCYTES % (AUTO) 18.4 % (2-12); NEUTROPHILS # (AUTO) 2.5 X10'3 (1.8-7.7); NEUTROPHILS % (AUTO) 49.1 % (42-75); PLATELET COUNT 187 X10'3 (140-440); RED BLOOD COUNT 3.29 X10'6 (4.20-5.60); RED CELL DISTRIBUTION WIDTH 23.7 % (11.5-14.5)
[2023-10-04 03:05] LABS: INR 1.1 INR; PROTHROMBIN TIME 11.3 SECONDS (9.0-12.0)
[2023-10-04 03:08] LABS: ALANINE AMINOTRANSFERASE 30 U/L (12-78); ALBUMIN 1.9 G/DL (3.4-5.0); ALBUMIN/GLOBULIN RATIO 0.5 (1.1-1.5); ALKALINE PHOSPHATASE 60 IU/L (46-116); AMYLASE 45 U/L (25-115); ANION GAP 1 (8-16); ASPARTATE AMINO TRANSFERASE 38 U/L (10-37); BILIRUBIN,TOTAL 0.6 MG/DL (0.1-1.0); BLOOD UREA NITROGEN 7 MG/DL (7-18); BUN/CREATININE RATIO 12.1 (10.0-20.0); CALCIUM 8.4 MG/DL (8.5-10.1); CHLORIDE 95 MMOL/L (99-107); CREATININE 0.58 MG/DL (0.40-0.90); GLUCOSE 98 MG/DL (70-104); LIPASE 27 U/L (16-77); MAGNESIUM 1.1 MG/DL (1.5-2.4); PHOSPHORUS 1.3 MG/DL (2.3-4.5); SODIUM 130 MMOL/L (135-145); TOTAL CARBON DIOXIDE 33.6 MMOL/L (24-32); TOTAL PROTEIN 5.5 G/DL (6.4-8.2); eCRCL 88 ML/MIN; eGFR > 90 ML/MIN
[2023-10-04 03:19] LABS: POTASSIUM 2.5 MMOL/L (3.5-5.1)
[2023-10-04 04:07] LABS: HYPOCHROMASIA 1+; PLATELET ESTIMATE NORMAL
[2023-10-04 04:08] LABS: ANISOCYTOSIS 3+; MICROCYTOSIS 1+
[2023-10-04] MEDS ORDERED: PANT40SU2 PO (04:56)
[2023-10-04] MEDS ORDERED: GABA-530 (04:56)
[2023-10-04] MEDS ORDERED: ciprofloxacin lact 400MG/200ML 200 ML IV SCH (07:30)
[2023-10-04] MEDS: cyclobenzaprine 10mg tablet PO PRN (07:30)
[2023-10-04] MEDS: ciprofloxacin lact 400MG/200ML 200 ML IV SCH (09:35)
[2023-10-04] MEDS: multivitamins, therapeutics tablet PO SCH (09:50)
[2023-10-04 10:15] VITALS: BP 111/59; PULSE 72; RESP 14; TEMP 97.9; O2SAT 98
[2023-10-04] MEDS: thiamine 100mg tablet PO ONE (10:27)
[2023-10-04] MEDS: folic acid 1mg tablet PO ONE (10:27)
[2023-10-04] MEDS: multivitamins, therapeutics tablet PO ONE (10:27)
[2023-10-04] MEDS: heparin, porcine 5000 units/ml vial SQ ONE (10:28)
[2023-10-04] MEDS: HYDROcodone/acetaminophen 10/325mg tab PO PRN (10:40)
[2023-10-04] MEDS: Potassium Cl inj 20 MEQ in normal saline 1000ml 990 ML IV SCH (13:39)
[2023-10-04 15:11] LABS: % IRON SATURATION 13 % (11-46); IRON 24 UG/DL (49-151); TOTAL IRON BINDING CAPACITY 189 UG/DL (259-388)
[2023-10-04 18:00] VITALS: BP 109/69; PULSE 61; RESP 17; TEMP 97.1; O2SAT 93
[2023-10-04 20:00] VITALS: RESP 17; O2SAT 91
[2023-10-04] MEDS: potassium Cl 20mEq in NS 1,000 ML IV SCH (20:26)
[2023-10-04 22:00] VITALS: BP 94/59; PULSE 80; RESP 14; TEMP 97.6; O2SAT 93
[2023-10-05 06:00] VITALS: BP 121/69; PULSE 81; RESP 12; TEMP 97.4; O2SAT 98
[2023-10-05 07:59] LABS: PROTHROMBIN TIME 10.8 SECONDS (9.0-12.0)
[2023-10-05 08:00] VITALS: RESP 18; O2SAT 95
[2023-10-05 08:17] LABS: ALANINE AMINOTRANSFERASE 36 U/L (12-78); ALBUMIN 1.9 G/DL (3.4-5.0); ALBUMIN/GLOBULIN RATIO 0.5 (1.1-1.5); ALKALINE PHOSPHATASE 60 IU/L (46-116); AMYLASE 34 U/L (25-115); ANION GAP 6 (8-16); ASPARTATE AMINO TRANSFERASE 54 U/L (10-37); BILIRUBIN,TOTAL 0.4 MG/DL (0.1-1.0); BLOOD UREA NITROGEN 4 MG/DL (7-18); BUN/CREATININE RATIO 7.4 (10.0-20.0); CALCIUM 8.1 MG/DL (8.5-10.1); CHLORIDE 104 MMOL/L (99-107); CREATININE 0.54 MG/DL (0.40-0.90); GLUCOSE 89 MG/DL (70-104); LIPASE 26 U/L (16-77); MAGNESIUM 1.3 MG/DL (1.5-2.4); POTASSIUM 3.6 MMOL/L (3.5-5.1); SODIUM 135 MMOL/L (135-145); TOTAL CARBON DIOXIDE 25.3 MMOL/L (24-32); TOTAL PROTEIN 5.5 G/DL (6.4-8.2); eCRCL 95 ML/MIN; eGFR > 90 ML/MIN
[2023-10-05 08:19] LABS: PHOSPHORUS 1.2 MG/DL (2.3-4.5)
[2023-10-05 09:08] LABS: BASOPHILS # (AUTO) 0.1 X10'3 (0-0.2); HEMATOCRIT 27.3 % (35.0-45.0); HEMOGLOBIN 8.4 g/dl (12.0-16.0); LYMPHOCYTES # (AUTO) 1.2 X10'3 (1.1-4.8); MONOCYTES # (AUTO) 0.5 X10'3 (0-0.9); WHITE BLOOD COUNT 3.7 X10'3 (4.5-11.0)
[2023-10-05 09:15] LABS: BASOPHILS % (AUTO) 2.1 % (0-1); EOSINOPHILS # (AUTO) 0.2 X10'3 (0-0.9); EOSINOPHILS % (AUTO) 4.1 % (0-6); LYMPHOCYTES % (AUTO) 32.2 % (21-51); MEAN CORPUSCULAR HEMOGLOBIN 22.9 PG (27.0-31.0); MEAN CORPUSCULAR HGB CONC 30.6 g/dL (33.0-36.5); MEAN CORPUSCULAR VOLUME 74.7 FL (78-98); MEAN PLATELET VOLUME 7.9 FL (7.4-10.4); MONOCYTES % (AUTO) 14.9 % (2-12); NEUTROPHILS # (AUTO) 1.7 X10'3 (1.8-7.7); NEUTROPHILS % (AUTO) 46.7 % (42-75); PLATELET COUNT 243 X10'3 (140-440); RED BLOOD COUNT 3.65 X10'6 (4.20-5.60); RED CELL DISTRIBUTION WIDTH 24.4 % (11.5-14.5)
[2023-10-05 10:00] VITALS: BP 98/60; PULSE 89; RESP 16; TEMP 98.3; O2SAT 100
[2023-10-05 10:03] LABS: PLATELET ESTIMATE NORMAL
[2023-10-05 10:05] LABS: ANISOCYTOSIS 3+; ELLIPTOCYTES FEW; HYPOCHROMASIA 2+; MICROCYTOSIS 1+
[2023-10-05] MEDS: Neutra Phos packet PO SCH (13:59)
[2023-10-05 18:00] VITALS: BP 127/81; PULSE 82; RESP 15; TEMP 98.2; O2SAT 96
[2023-10-05] MEDS: magnesium Cl slow-release 64mg tablet PO PRN (20:37)
[2023-10-05 22:00] VITALS: BP 120/79; PULSE 88; RESP 13; TEMP 97.6; O2SAT 97
[2023-10-06 06:00] VITALS: BP 108/72; PULSE 83; RESP 16; TEMP 97.3; O2SAT 96
[2023-10-06 07:38] LABS: BASOPHILS # (AUTO) 0.1 X10'3 (0-0.2); BASOPHILS % (AUTO) 1.8 % (0-1); EOSINOPHILS # (AUTO) 0.2 X10'3 (0-0.9); EOSINOPHILS % (AUTO) 4.6 % (0-6); HEMATOCRIT 24.8 % (35.0-45.0); HEMOGLOBIN 7.7 g/dl (12.0-16.0); LYMPHOCYTES # (AUTO) 1.5 X10'3 (1.1-4.8); LYMPHOCYTES % (AUTO) 35.4 % (21-51); MEAN CORPUSCULAR HGB CONC 31.2 g/dL (33.0-36.5); MEAN CORPUSCULAR VOLUME 73.7 FL (78-98); MEAN PLATELET VOLUME 7.6 FL (7.4-10.4); MONOCYTES # (AUTO) 0.6 X10'3 (0-0.9); MONOCYTES % (AUTO) 14.1 % (2-12); NEUTROPHILS # (AUTO) 1.9 X10'3 (1.8-7.7); NEUTROPHILS % (AUTO) 44.1 % (42-75); PLATELET COUNT 243 X10'3 (140-440); RED BLOOD COUNT 3.36 X10'6 (4.20-5.60); RED CELL DISTRIBUTION WIDTH 24.8 % (11.5-14.5); WHITE BLOOD COUNT 4.3 X10'3 (4.5-11.0)
[2023-10-06 07:47] LABS: PROTHROMBIN TIME 10.9 SECONDS (9.0-12.0)
[2023-10-06] MEDS: ciprofloxacin 250mg tablet PO SCH (07:58)
[2023-10-06 08:05] LABS: ALANINE AMINOTRANSFERASE 36 U/L (12-78); ALBUMIN 1.9 G/DL (3.4-5.0); ALBUMIN/GLOBULIN RATIO 0.5 (1.1-1.5); ALKALINE PHOSPHATASE 64 IU/L (46-116); AMYLASE 34 U/L (25-115); ANION GAP 3 (8-16); ASPARTATE AMINO TRANSFERASE 45 U/L (10-37); BILIRUBIN,TOTAL 0.5 MG/DL (0.1-1.0); BLOOD UREA NITROGEN 3 MG/DL (7-18); BUN/CREATININE RATIO 5.4 (10.0-20.0); CALCIUM 8.3 MG/DL (8.5-10.1); CHLORIDE 107 MMOL/L (99-107); CREATININE 0.56 MG/DL (0.40-0.90); GLUCOSE 91 MG/DL (70-104); LIPASE 26 U/L (16-77); POTASSIUM 3.9 MMOL/L (3.5-5.1); SODIUM 134 MMOL/L (135-145); TOTAL CARBON DIOXIDE 24.1 MMOL/L (24-32); TOTAL PROTEIN 5.6 G/DL (6.4-8.2); eCRCL 91 ML/MIN; eGFR > 90 ML/MIN
[2023-10-06 08:19] LABS: PLATELET ESTIMATE NORMAL
[2023-10-06 08:20] LABS: HYPOCHROMASIA 2+
[2023-10-06 08:25] LABS: ANISOCYTOSIS 2+; ELLIPTOCYTES FEW; MICROCYTOSIS 1+; POIKILOCYTOSIS 1+
[2023-10-06 10:00] VITALS: BP 110/70; PULSE 76; RESP 16; TEMP 97.3; O2SAT 98
[2023-10-06 10:03] LABS: PHOSPHORUS 2.2 MG/DL (2.3-4.5)
[2023-10-06] MEDS: levoFLOXACIN 500mg tablet PO SCH (14:26)
[2023-10-06] MEDS ORDERED: FOLI1TAB27 PO (15:16)
[2023-10-06] MEDS ORDERED: MULT-25 PO (15:16)
[2023-10-06] MEDS ORDERED: LOPE2CAP PO (15:16)
[2023-10-06] MEDS ORDERED: thiamine tablet PO (15:16)
[2023-10-06] MEDS ORDERED: LEVO-65 PO (16:41)
[2023-10-06 18:00] VITALS: BP 123/80; PULSE 85; RESP 16; TEMP 97.9; O2SAT 98
[2023-10-06 20:00] VITALS: RESP 16; O2SAT 98
[2023-10-06 22:00] VITALS: BP 124/83; PULSE 86; RESP 16; TEMP 97.2; O2SAT 98
[2023-10-07 06:47] VITALS: BP 111/83; PULSE 89; RESP 14; TEMP 97.6; O2SAT 99
[2023-10-07 06:54] LABS: BASOPHILS # (AUTO) 0.1 X10'3 (0-0.2); BASOPHILS % (AUTO) 1.9 % (0-1); EOSINOPHILS # (AUTO) 0.1 X10'3 (0-0.9); EOSINOPHILS % (AUTO) 3.1 % (0-6); HEMOGLOBIN 7.9 g/dl (12.0-16.0); LYMPHOCYTES # (AUTO) 1.6 X10'3 (1.1-4.8); LYMPHOCYTES % (AUTO) 37.7 % (21-51); MEAN CORPUSCULAR HEMOGLOBIN 23.1 PG (27.0-31.0); MEAN CORPUSCULAR HGB CONC 31.7 g/dL (33.0-36.5); MEAN PLATELET VOLUME 7.1 FL (7.4-10.4); MONOCYTES # (AUTO) 0.6 X10'3 (0-0.9); MONOCYTES % (AUTO) 13.4 % (2-12); NEUTROPHILS # (AUTO) 1.9 X10'3 (1.8-7.7); NEUTROPHILS % (AUTO) 43.9 % (42-75); PLATELET COUNT 236 X10'3 (140-440); RED BLOOD COUNT 3.43 X10'6 (4.20-5.60); WHITE BLOOD COUNT 4.2 X10'3 (4.5-11.0)
[2023-10-07 07:08] LABS: PROTHROMBIN TIME 11.2 SECONDS (9.0-12.0)
[2023-10-07 07:18] LABS: ALANINE AMINOTRANSFERASE 31 U/L (12-78); ALBUMIN/GLOBULIN RATIO 0.5 (1.1-1.5); ALKALINE PHOSPHATASE 66 IU/L (46-116); AMYLASE 39 U/L (25-115); ANION GAP 8 (8-16); ASPARTATE AMINO TRANSFERASE 37 U/L (10-37); BILIRUBIN,TOTAL 0.5 MG/DL (0.1-1.0); BLOOD UREA NITROGEN 3 MG/DL (7-18); BUN/CREATININE RATIO 5.4 (10.0-20.0); CALCIUM 8.5 MG/DL (8.5-10.1); CHLORIDE 107 MMOL/L (99-107); CREATININE 0.56 MG/DL (0.40-0.90); GLUCOSE 105 MG/DL (70-104); LIPASE 33 U/L (16-77); POTASSIUM 4.1 MMOL/L (3.5-5.1); SODIUM 135 MMOL/L (135-145); TOTAL CARBON DIOXIDE 19.9 MMOL/L (24-32); TOTAL PROTEIN 5.7 G/DL (6.4-8.2); eCRCL 91 ML/MIN; eGFR > 90 ML/MIN
[2023-10-07] MEDS: loperamide 2mg capsule PO PRN (07:37)
[2023-10-07 08:00] VITALS: RESP 16; O2SAT 98
[2023-10-07] MEDS ORDERED: thiamine 100mg tablet PO SCH (08:00)
[2023-10-07 10:00] VITALS: BP 109/73; PULSE 92; RESP 16; TEMP 98
[2023-10-07 18:00] VITALS: BP 122/83; PULSE 100; RESP 15; TEMP 98.2; O2SAT 99
[2023-10-07 20:00] VITALS: RESP 15
[2023-10-07 22:00] VITALS: BP 112/78; PULSE 89; RESP 16; TEMP 97.4; O2SAT 98
[2023-10-08 06:50] VITALS: BP 104/66; PULSE 82; RESP 17; TEMP 96.8; O2SAT 98
[2023-10-08 07:41] LABS: BASOPHILS # (AUTO) 0.1 X10'3 (0-0.2); BASOPHILS % (AUTO) 1.2 % (0-1); EOSINOPHILS # (AUTO) 0.1 X10'3 (0-0.9); EOSINOPHILS % (AUTO) 1.8 % (0-6); HEMATOCRIT 28.4 % (35.0-45.0); HEMOGLOBIN 9.1 g/dl (12.0-16.0); LYMPHOCYTES # (AUTO) 1.9 X10'3 (1.1-4.8); LYMPHOCYTES % (AUTO) 30.2 % (21-51); MEAN CORPUSCULAR HEMOGLOBIN 23.7 PG (27.0-31.0); MEAN CORPUSCULAR HGB CONC 31.9 g/dL (33.0-36.5); MEAN CORPUSCULAR VOLUME 74.4 FL (78-98); MEAN PLATELET VOLUME 7.8 FL (7.4-10.4); MONOCYTES # (AUTO) 0.8 X10'3 (0-0.9); MONOCYTES % (AUTO) 12.9 % (2-12); NEUTROPHILS # (AUTO) 3.4 X10'3 (1.8-7.7); NEUTROPHILS % (AUTO) 53.9 % (42-75); PLATELET COUNT 268 X10'3 (140-440); RED BLOOD COUNT 3.82 X10'6 (4.20-5.60); RED CELL DISTRIBUTION WIDTH 25.5 % (11.5-14.5); WHITE BLOOD COUNT 6.2 X10'3 (4.5-11.0)
[2023-10-08 07:47] LABS: INR 1.1 INR; PROTHROMBIN TIME 11.2 SECONDS (9.0-12.0)
[2023-10-08 07:58] LABS: ALANINE AMINOTRANSFERASE 36 U/L (12-78); ALBUMIN 2.2 G/DL (3.4-5.0); ALBUMIN/GLOBULIN RATIO 0.5 (1.1-1.5); ALKALINE PHOSPHATASE 74 IU/L (46-116); AMYLASE 48 U/L (25-115); ANION GAP 10 (8-16); ASPARTATE AMINO TRANSFERASE 34 U/L (10-37); BILIRUBIN,TOTAL 0.5 MG/DL (0.1-1.0); BLOOD UREA NITROGEN 4 MG/DL (7-18); BUN/CREATININE RATIO 6.6 (10.0-20.0); CALCIUM 8.6 MG/DL (8.5-10.1); CHLORIDE 102 MMOL/L (99-107); CREATININE 0.61 MG/DL (0.40-0.90); GLUCOSE 89 MG/DL (70-104); LIPASE 30 U/L (16-77); POTASSIUM 3.7 MMOL/L (3.5-5.1); SODIUM 132 MMOL/L (135-145); TOTAL CARBON DIOXIDE 20.3 MMOL/L (24-32); TOTAL PROTEIN 6.6 G/DL (6.4-8.2); eCRCL 84 ML/MIN; eGFR > 90 ML/MIN
[2023-10-08 08:00] VITALS: RESP 16; O2SAT 99
[2023-10-08] MEDS ORDERED: folic acid 1mg tablet PO SCH (08:00)
[2023-10-08] MEDS: HYDROcodone/acetaminophen 5mg/325mg tablet PO PRN (08:07)
[2023-10-08 09:07] VITALS: RESP 16
[2023-10-08 09:21] LABS: ANISOCYTOSIS 3+; MICROCYTOSIS 1+; PLATELET ESTIMATE NORMAL; POIKILOCYTOSIS FEW
== END 2023-10-08 16:54 | disposition home or self-care (01) | DRG 641 ==
LOC: ER 12:55 → ED HOLD 15:04 → ORTHO 4S 10-04 10:27
PROVIDERS: ADMIT Internal Medicine; ATTEND Internal Medicine
PROC: 05HF33Z Insertion of Infusion Device into Left Cephalic Vein, Percutaneous Approach (ICD-10-PCS; principal; 2023-10-05)
DX: E87.6 Hypokalemia (principal); F10.239 Alcohol dependence with withdrawal, unspecified; Z59.00 Homelessness unspecified; R71.0 Precipitous drop in hematocrit; N39.0 Urinary tract infection, site not specified; E44.0 Moderate protein-calorie malnutrition; E87.1 Hypo-osmolality and hyponatremia; F31.9 Bipolar disorder, unspecified; G89.4 Chronic pain syndrome; I10 Essential (primary) hypertension; K21.9 Gastro-esophageal reflux disease without esophagitis; R13.10 Dysphagia, unspecified; F41.9 Anxiety disorder, unspecified; M54.9 Dorsalgia, unspecified; Z91.040 Latex allergy status; Z89.611 Acquired absence of right leg above knee; Z68.21 Body mass index [BMI] 21.0-21.9, adult
CPT/HCPCS: 36410; 36415; 76937; 80053; 81001; 81003; 82150; 83540; 83550; 83605; 83690; 83735; 84100; 84132; 85008; 85025; 85610; 87040; 87077; 87081; 87088; 87186; 92508; 92616; 93005; 97110; 97161; 97530; 97535; 99285; C1751; G0378; J0744; J1644; J2060; J3480; J7030

== ENCOUNTER 2023-10-18 10:11 | Emergency (ER) | payer BC, MEDICAID ==
[~2023-10-18] VITALS: Ht 170.2 cm; Wt 60.0 kg
[~2023-10-18 10:11] MED LIST changes: -BETA15CR4 TOP; +FOLI1TAB27 PO; +GABA-530; +LEVO-65 PO; +LOPE2CAP PO; +MULT-25 PO; +PANT40SU2 PO; +thiamine tablet PO
[2023-10-18 10:22] VITALS: TEMP 97.8
[2023-10-18 13:12] LABS: BASOPHILS # (AUTO) 0.1 X10'3 (0-0.2); BASOPHILS % (AUTO) 1.2 % (0-1); EOSINOPHILS # (AUTO) 0.1 X10'3 (0-0.9); EOSINOPHILS % (AUTO) 0.9 % (0-6); HEMATOCRIT 29.6 % (35.0-45.0); HEMOGLOBIN 9.5 g/dl (12.0-16.0); LYMPHOCYTES # (AUTO) 2.1 X10'3 (1.1-4.8); LYMPHOCYTES % (AUTO) 31.1 % (21-51); MEAN CORPUSCULAR HEMOGLOBIN 24.3 PG (27.0-31.0); MEAN CORPUSCULAR HGB CONC 32.2 g/dL (33.0-36.5); MEAN CORPUSCULAR VOLUME 75.5 FL (78-98); MEAN PLATELET VOLUME 7.5 FL (7.4-10.4); MONOCYTES # (AUTO) 0.4 X10'3 (0-0.9); MONOCYTES % (AUTO) 6.5 % (2-12); NEUTROPHILS % (AUTO) 60.3 % (42-75); PLATELET COUNT 349 X10'3 (140-440); RED BLOOD COUNT 3.93 X10'6 (4.20-5.60); RED CELL DISTRIBUTION WIDTH 24.9 % (11.5-14.5); WHITE BLOOD COUNT 6.7 X10'3 (4.5-11.0)
--- NOTE | 2023-10-18 13:23 | NUR ---
digitially checking patient s rectum with female radha
[2023-10-18 13:29] LABS: ALANINE AMINOTRANSFERASE 27 U/L (12-78); ALBUMIN 2.6 G/DL (3.4-5.0); ALBUMIN/GLOBULIN RATIO 0.6 (1.1-1.5); ALKALINE PHOSPHATASE 83 IU/L (46-116); ANION GAP 12 (8-16); ASPARTATE AMINO TRANSFERASE 41 U/L (10-37); BILIRUBIN,TOTAL 0.4 MG/DL (0.1-1.0); BLOOD UREA NITROGEN 6 MG/DL (7-18); BUN/CREATININE RATIO 10.3 (10.0-20.0); CALCIUM 9.3 MG/DL (8.5-10.1); CHLORIDE 103 MMOL/L (99-107); CREATININE 0.58 MG/DL (0.40-0.90); ETHANOL 143 MG/DL (<10); GLUCOSE 105 MG/DL (70-104); LIPASE 31 U/L (16-77); POTASSIUM 3.4 MMOL/L (3.5-5.1); SODIUM 139 MMOL/L (135-145); TOTAL CARBON DIOXIDE 24.2 MMOL/L (24-32); TOTAL PROTEIN 7.2 G/DL (6.4-8.2); eCRCL 87 ML/MIN; eGFR > 90 ML/MIN
[2023-10-18] MEDS: ondansetron/PF 4mg/2ml inj IV ONE (13:29)
[2023-10-18] MEDS: pantoprazole 40 MG vial IV SCH (13:29)
[2023-10-18] MEDS: normal saline 1000ml 1,000 ML IV ONE ×2 (13:29)
[2023-10-18] MEDS: metoclopramide 5 mg/ml inj IV ONE (14:11)
[2023-10-18 14:45] LABS: ANISOCYTOSIS 3+; HYPOCHROMASIA 1+; MICROCYTOSIS 1+; PLATELET ESTIMATE NORMAL; POLYCHROMASIA 1+; TARGET CELLS 2+
[2023-10-18 14:46] LABS: ELLIPTOCYTES FEW
[2023-10-18 18:04] VITALS: BP 126/89; PULSE 87; RESP 18; O2SAT 98
== END 2023-10-18 18:16 | disposition home or self-care (01) ==
LOC: ER 10:12
DX: K27.9 Peptic ulcer, site unspecified, unspecified as acute or chronic, without hemorrhage or perforation (principal); K21.9 Gastro-esophageal reflux disease without esophagitis; I10 Essential (primary) hypertension; D64.9 Anemia, unspecified; G89.29 Other chronic pain; M54.9 Dorsalgia, unspecified; F41.9 Anxiety disorder, unspecified; F32.A Depression, unspecified; F10.90 Alcohol use, unspecified, uncomplicated; Z91.040 Latex allergy status; Z79.899 Other long term (current) drug therapy; Z79.2 Long term (current) use of antibiotics; Z98.890 Other specified postprocedural states; Z60.2 Problems related to living alone
CPT/HCPCS: 36415; 74176; 76700; 80053; 80320; 83690; 84484; 85008; 85025; 93005; 96365; 96375; 99285; J2405; J2470; J2765; J7030

== ENCOUNTER 2023-12-15 11:03 | Emergency (ER) | payer BC, MEDICAID ==
[~2023-12-15] VITALS: Ht 170.2 cm; Wt 65.0 kg
[2023-12-15 11:08] VITALS: BP 150/78; PULSE 83; RESP 18; TEMP 97.3; O2SAT 99
[2023-12-15 12:22] LABS: BASOPHILS % (AUTO) 0.5 % (0-1); EOSINOPHILS # (AUTO) 0.2 X10'3 (0-0.9); EOSINOPHILS % (AUTO) 4.7 % (0-6); HEMATOCRIT 27.4 % (35.0-45.0); HEMOGLOBIN 8.8 g/dl (12.0-16.0); LYMPHOCYTES % (AUTO) 38.8 % (21-51); MEAN CORPUSCULAR VOLUME 81.4 FL (78-98); MEAN PLATELET VOLUME 8.3 FL (7.4-10.4); MONOCYTES # (AUTO) 0.7 X10'3 (0-0.9); MONOCYTES % (AUTO) 13.4 % (2-12); NEUTROPHILS # (AUTO) 2.2 X10'3 (1.8-7.7); NEUTROPHILS % (AUTO) 42.6 % (42-75); PLATELET COUNT 341 X10'3 (140-440); RED BLOOD COUNT 3.36 X10'6 (4.20-5.60); RED CELL DISTRIBUTION WIDTH 16.8 % (11.5-14.5); WHITE BLOOD COUNT 5.2 X10'3 (4.5-11.0)
[2023-12-15 12:29] LABS: ALBUMIN 2.4 G/DL (3.4-5.0); ANION GAP 9 (8-16); BLOOD UREA NITROGEN 6 MG/DL (7-18); BUN/CREATININE RATIO 10.9 (10.0-20.0); CHLORIDE 112 MMOL/L (99-107); CREATININE 0.55 MG/DL (0.40-0.90); GLUCOSE 109 MG/DL (70-104); LIPASE 37 U/L (16-77); POTASSIUM 3.2 MMOL/L (3.5-5.1); SODIUM 143 MMOL/L (135-145); TOTAL CARBON DIOXIDE 21.8 MMOL/L (24-32); eCRCL 94 ML/MIN; eGFR > 90 ML/MIN
== END 2023-12-15 12:23 | disposition left against medical advice (07) ==
LOC: ER 11:04
DX: Z76.0 Encounter for issue of repeat prescription (principal); Z91.040 Latex allergy status; Z53.21 Procedure and treatment not carried out due to patient leaving prior to being seen by health care provider
CPT/HCPCS: 36415; 80048; 83690; 84484; 85025

== ENCOUNTER 2023-12-15 14:11 | Emergency (ER) | payer BC, MEDICAID ==
[~2023-12-15] VITALS: Ht 170.2 cm; Wt 60.0 kg
[2023-12-15 17:05] VITALS: BP 121/63; PULSE 80; RESP 16; TEMP 97.8; O2SAT 97
== END 2023-12-15 17:13 | disposition home or self-care (01) ==
LOC: ER 14:12
DX: R04.2 Hemoptysis (principal); F10.90 Alcohol use, unspecified, uncomplicated; I10 Essential (primary) hypertension; K21.9 Gastro-esophageal reflux disease without esophagitis; G89.29 Other chronic pain; M54.9 Dorsalgia, unspecified; D64.9 Anemia, unspecified; F41.9 Anxiety disorder, unspecified; F32.A Depression, unspecified; Z98.890 Other specified postprocedural states; Z60.2 Problems related to living alone; Z91.040 Latex allergy status; Z79.2 Long term (current) use of antibiotics; Z79.899 Other long term (current) drug therapy
CPT/HCPCS: 99284

== ENCOUNTER 2024-05-08 17:09 | Emergency (ER) | payer MEDICARE, MEDICAID ==
[~2024-05-08] VITALS: Ht 165.1 cm; Wt 59.2 kg
[2024-05-08 17:21] VITALS: BP 106/73; PULSE 98; TEMP 97.8; O2SAT 96
[2024-05-09] MEDS ORDERED: POTA-207 PO (03:54)
== END 2024-05-08 19:22 | disposition left against medical advice (07) ==
LOC: ER 17:10
DX: I10 Essential (primary) hypertension (principal); Z91.040 Latex allergy status; Z53.21 Procedure and treatment not carried out due to patient leaving prior to being seen by health care provider
CPT/HCPCS: 71045

== ENCOUNTER 2024-05-09 00:43 | Emergency (ER) | payer MEDICARE, MEDICAID ==
[~2024-05-09] VITALS: Ht 160 cm; Wt 63.6 kg
[2024-05-09 01:08] VITALS: TEMP 97.6
[2024-05-09 01:28] LABS: BASOPHILS # (AUTO) 0.2 X10'3 (0-0.2); BASOPHILS % (AUTO) 1.7 % (0-1); EOSINOPHILS # (AUTO) 0.4 X10'3 (0-0.9); EOSINOPHILS % (AUTO) 4.8 % (0-6); HEMATOCRIT 31.9 % (35.0-45.0); HEMOGLOBIN 9.9 g/dl (12.0-16.0); LYMPHOCYTES # (AUTO) 4.1 X10'3 (1.1-4.8); LYMPHOCYTES % (AUTO) 44.9 % (21-51); MEAN CORPUSCULAR HEMOGLOBIN 22.6 PG (27.0-31.0); MEAN CORPUSCULAR VOLUME 72.8 FL (78-98); MEAN PLATELET VOLUME 6.8 FL (7.4-10.4); MONOCYTES # (AUTO) 1.2 X10'3 (0-0.9); NEUTROPHILS # (AUTO) 3.2 X10'3 (1.8-7.7); NEUTROPHILS % (AUTO) 35.6 % (42-75); PLATELET COUNT 168 X10'3 (140-440); RED BLOOD COUNT 4.38 X10'6 (4.20-5.60); RED CELL DISTRIBUTION WIDTH 18.6 % (11.5-14.5); WHITE BLOOD COUNT 9.1 X10'3 (4.5-11.0)
[2024-05-09 01:47] LABS: ALANINE AMINOTRANSFERASE 11 U/L (12-78); ALBUMIN 2.9 G/DL (3.4-5.0); ALBUMIN/GLOBULIN RATIO 0.5 (1.1-1.5); ALKALINE PHOSPHATASE 93 IU/L (46-116); ANION GAP 12 (8-16); ASPARTATE AMINO TRANSFERASE 23 U/L (10-37); BILIRUBIN,TOTAL 0.3 MG/DL (0.1-1.0); BLOOD UREA NITROGEN 15 MG/DL (7-18); BUN/CREATININE RATIO 17.9 (10.0-20.0); CALCIUM 8.3 MG/DL (8.5-10.1); CHLORIDE 106 MMOL/L (99-107); CREATININE 0.84 MG/DL (0.40-0.90); GLUCOSE 98 MG/DL (70-104); SODIUM 142 MMOL/L (135-145); TOTAL CARBON DIOXIDE 23.6 MMOL/L (24-32); TOTAL PROTEIN 9.1 G/DL (6.4-8.2); eCRCL 52 ML/MIN; eGFR 67 ML/MIN
[2024-05-09 01:50] LABS: PRO BRAIN NATRIURETIC PEPTIDE 83 PG/ML (0-125)
[2024-05-09 02:04] LABS: ANISOCYTOSIS 1+; PLATELET ESTIMATE NORMAL
[2024-05-09 02:05] LABS: MICROCYTOSIS 1+; TARGET CELLS FEW
[2024-05-09] MEDS ORDERED: POTA-207 PO (03:54)
[2024-05-09] MEDS: ondansetron 4mg rapidly disintigrating tab PO ONE (04:01)
[2024-05-09] MEDS: potassium Cl 20 mEq SR tablet PO STA (04:02)
[2024-05-09 04:06] VITALS: BP 114/68; PULSE 77; RESP 16; O2SAT 97
== END 2024-05-09 04:13 | disposition home or self-care (01) ==
LOC: ER 00:44
DX: R07.9 Chest pain, unspecified (principal); E87.6 Hypokalemia; K21.9 Gastro-esophageal reflux disease without esophagitis; F10.90 Alcohol use, unspecified, uncomplicated; F31.9 Bipolar disorder, unspecified; I10 Essential (primary) hypertension; Z91.040 Latex allergy status; Z89.611 Acquired absence of right leg above knee; Z90.89 Acquired absence of other organs; Y90.9 Presence of alcohol in blood, level not specified
CPT/HCPCS: 36415; 71045; 80053; 83880; 84484; 85008; 85025; 93005; 99285

== ENCOUNTER 2024-11-22 21:01 | Emergency (ER) | payer MEDICARE, MEDICAID ==
[~2024-11-22] VITALS: Ht 170.2 cm; Wt 60.0 kg
[~2024-11-22 21:01] MED LIST changes: +ONDA-245 PO
[2024-11-22 21:20] VITALS: BP 118/90; PULSE 80; RESP 16; O2SAT 99
[2024-11-22 22:22] LABS: MEAN PLATELET VOLUME 9.3 FL (7.4-10.4); RED CELL DISTRIBUTION WIDTH 19.0 % (11.5-14.5)
[2024-11-22 22:32] LABS: CREATININE 0.95 MG/DL (0.40-0.90); TOTAL CARBON DIOXIDE 25.1 MMOL/L (24-32); eCRCL 52 ML/MIN; eGFR 58 ML/MIN
[2024-11-22 22:38] LABS: PLATELET ESTIMATE NORMAL
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
[2024-11-23] MEDS ORDERED: ACET-2615 PO (01:58)
[2024-11-23] MEDS ORDERED: CYCL-1 PO (01:58)
[2024-11-23 02:09] VITALS: TEMP 97.4
[2024-11-23] MEDS: ibuprofen tablet 400 MG TABLET PO ONE (02:19)
== END 2024-11-23 02:22 | disposition home or self-care (01) ==
LOC: ER 21:02
DX: M43.6 Torticollis (principal); I10 Essential (primary) hypertension; G89.29 Other chronic pain; F31.9 Bipolar disorder, unspecified; F10.90 Alcohol use, unspecified, uncomplicated; K21.9 Gastro-esophageal reflux disease without esophagitis; D64.9 Anemia, unspecified; F41.9 Anxiety disorder, unspecified; Z91.040 Latex allergy status; Z90.89 Acquired absence of other organs; Z87.19 Personal history of other diseases of the digestive system; Z89.611 Acquired absence of right leg above knee; Z79.899 Other long term (current) drug therapy; Z60.2 Problems related to living alone; Y90.9 Presence of alcohol in blood, level not specified
CPT/HCPCS: 36415; 80053; 83690; 85008; 85025; 99283

== ENCOUNTER 2024-11-23 06:25 | Emergency (ER) | payer MEDICARE, MEDICAID ==
[~2024-11-23] VITALS: Ht 170.2 cm; Wt 56.0 kg
[~2024-11-23 06:25] MED LIST changes: +ACET-2615 PO; +CYCL-1 PO
[2024-11-23 06:30] VITALS: BP 103/71; PULSE 90; RESP 18; TEMP 98.1; O2SAT 98
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
== END 2024-11-23 11:52 | disposition home or self-care (01) ==
LOC: ER 06:26
DX: M43.6 Torticollis (principal); I10 Essential (primary) hypertension; G89.29 Other chronic pain; F31.9 Bipolar disorder, unspecified; F41.9 Anxiety disorder, unspecified; K21.9 Gastro-esophageal reflux disease without esophagitis; D64.9 Anemia, unspecified; F10.90 Alcohol use, unspecified, uncomplicated; Z91.040 Latex allergy status; Z87.19 Personal history of other diseases of the digestive system; Z90.89 Acquired absence of other organs; Z89.611 Acquired absence of right leg above knee; Z79.899 Other long term (current) drug therapy; Y90.9 Presence of alcohol in blood, level not specified; Z60.2 Problems related to living alone
CPT/HCPCS: 99282

== ENCOUNTER 2024-11-26 02:22 | Emergency (ER) | payer MEDICARE, MEDICAID ==
[~2024-11-26] VITALS: Ht 170.2 cm; Wt 56.0 kg
--- NOTE | 2024-11-26 02:34 | ELECTROCARDIOGRAPH REPORT ---
[facility] Test Date: 2024-11-26 Test Time: 02:26:12 Pat Name: GIL MANNLIZETHONDepartment: EMERGENCY ROOM Room: Gender: F Learning Disabled Teacher: ADONIS : 1955 Requested By: EVAN ANGUIANO Order Number: [id number] Reading MD: Measurements Intervals [place] Rate: 89 P: 25 RI: 165 QRS: -27 QRSD: 96 T: 15 QT: 392 QTc: 477 Interpretive Statements Sinus rhythm Abnormal R-wave progression, early transition Inferior infarct, old Baseline wander in lead(s) V6 Please click the below link to view image of tracing.
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
[2024-11-26 02:39] VITALS: BP 142/74; PULSE 77; RESP 18; TEMP 98.1; O2SAT 97
[2024-11-26 02:54] LABS: MEAN PLATELET VOLUME 8.1 FL (7.4-10.4); RED CELL DISTRIBUTION WIDTH 18.7 % (11.5-14.5)
[2024-11-26 03:13] LABS: CREATININE 0.95 MG/DL (0.40-0.90); TOTAL CARBON DIOXIDE 25.8 MMOL/L (24-32); eCRCL 49 ML/MIN; eGFR 58 ML/MIN
--- NOTE | 2024-11-26 03:54 | RADIOLOGY REPORT ---
CHEST RADIOGRAPH Indication: Upper left-sided chest pain/shoulder pain Technique: Single frontal view of the chest was obtained COMPARISON: DI CHEST,SINGLE VIEW on DOS: 05/09/24, DI CHEST,SINGLE VIEW on DOS: 05/08/24, DI CHEST,SINGLE VIEW on DOS: 12/05/22, CHEST,SINGLE VIEW on DOS: 09/29/21, CTA CHEST on DOS: 04/08/21 FINDINGS: Lines and Tubes: None Lungs: Clear Pleura: No effusion. No pneumothorax. Cardiomediastinal contours: Cardiomegaly. Bones: Unremarkable IMPRESSION: 1. Cardiomegaly.
--- NOTE | 2024-11-26 03:55 | RADIOLOGY REPORT ---
CLINICAL INDICATION: Upper left-sided chest pain/shoulder pain TECHNIQUE: DI SHOULDER, COMPLETE (MIN 2 VWS) Comparison: SHOULDER, COMPLETE (MIN 2 VWS) on DOS: 05/16/20 FINDINGS/IMPRESSION: : There is no evidence of acute fracture or dislocation. High-riding humeral head with moderate to severe glenohumeral joint space narrowing and marginal osteophytosis and hypertrophic acromioclavicular arthropathy. Visualized portions of the lungs and cardiomediastinum are within normal limits. Soft tissues are unremarkable.
== END 2024-11-26 04:16 | disposition home or self-care (01) ==
LOC: ER 02:23
DX: M25.512 Pain in left shoulder (principal); R51.9 Headache, unspecified; G89.29 Other chronic pain; D64.9 Anemia, unspecified; I10 Essential (primary) hypertension; F31.9 Bipolar disorder, unspecified; K21.9 Gastro-esophageal reflux disease without esophagitis; F41.9 Anxiety disorder, unspecified; Z91.040 Latex allergy status; Z89.611 Acquired absence of right leg above knee; Z87.19 Personal history of other diseases of the digestive system; Z90.89 Acquired absence of other organs; Z79.899 Other long term (current) drug therapy; Z98.890 Other specified postprocedural states; Z60.2 Problems related to living alone
CPT/HCPCS: 36415; 71045; 73030; 80053; 83735; 84484; 85025; 93005; 99285